=== PATIENT | female | born 1960 | race Caucasian/White ===

== ENCOUNTER 2018-04-18 06:14 | Inpatient (IN) ==
[2018-04-18] MEDS ORDERED: 0.9 % Sodium Chloride 1,000 ML IVC ONE ×2 (06:36→08:06)
[2018-04-18 07:13] LABS: Basophils % 0.3 %; Eosinophils % 0.2 %; Hematocrit 30.4 % (35.3-44.9); Hemoglobin 9.9 g/dL (11.5-15.4); Immature Granulocytes % 0.7 % (0-4); Lymphocytes # 0.6 K/mcL (0.6-4.6); Lymphocytes % 4.4 %; Mean Corpuscular HGB Conc 32.6 g/dL (31.6-35.5); Mean Corpuscular Hemoglobin 30.7 pg (28.0-33.3); Mean Corpuscular Volume 94.1 fL (83.0-100.0); Mean Platelet Volume 9.6 fL (9.4-12.4); Monocytes # 1.1 K/mcL (0.0-1.3); Monocytes % 7.7 %; Neutrophils # 12.6 K/mcL (1.6-8.9); Platelet Count 377 K/mcL (140-400); Red Blood Count 3.23 M/mcL (3.82-4.97); Red Cell Distribution Width 15.5 % (11.5-14.5); Segmented Neutrophils % 86.7 %
[2018-04-18] MEDS ORDERED: Ondansetron ODT 4 MG TAB.RAPDIS SL ONE (07:20)
[2018-04-18] MEDS ORDERED: OXYCODONE Oral CONC 10 MG/0.5 ML ORAL.SYG SL ONE (07:20)
[2018-04-18 07:22] LABS: INR 1.1; Prothrombin Time 12.9 Seconds (9.4-12.1)
[2018-04-18 07:25] LABS: Activated Partial Thrombo Time 28.4 Seconds (26.0-36.0)
--- NOTE | 2018-04-18 07:37 | Emergency Department Note ---
Disposition Clinical Impression: CHASIDY (acute kidney injury) Deep vein thrombosis of lower extremity Qualifiers: Affected thrombotic vein of extremity: iliac Chronicity: acute Laterality: left Qualified Code(s): I82.422 - Acute embolism and thrombosis of left iliac vein Anemia Qualifiers: Anemia type: unspecified type Qualified Code(s): D64.9 - Anemia, unspecified Disposition: Admitted As Inpatient Condition: Fair Referrals: Shayy Seals DO [Primary Care Provider] - Forms: ED Satisfaction Letter Extremity Problem HPI - General Chief complaint: ED Extremity Problem,Nontraumatic Stated complaint: dvt Time Seen by Provider: 04/18/18 06:16 Source: patient, other (EM documentation from [facility] ) Mode of arrival: EMS Limitations: no limitations Nursing Notes Reviewed: Yes Vital Signs Reviewed: Yes - History of Present Illness HPI Narrative: Patient w/ hx of metastatic small cell lung CA was sent here from [facility] emergency department for evaluation of left leg swelling and pain. Report received was that they were concerned about DVT and had a hard time obtaining distal pulses as well. Patient complains of left leg swelling 24 hours pain 1 week. She denies chest pain, shortness of breath, dyspnea on exertion. She has had mild intermittent swelling of both legs. However, she has never had this amount of edema or any asymmetry. She saw her primary care provider yesterday for the leg pain, but states that she did not get a diagnosis or any new medications. Around 2 AM she tried to ambulate in her house and her leg felt ve ry heavy and sore. She noticed that it was much more swollen, so she went to [facility] ER. Pt Subjective Complaint: extremity pain, extremity swelling Onset (ago): day(s) Consistency: constant, Worsening Injury Location: left Pain Scale: 10 Quality: aching, dull Radiation: proximal Improves with: immobilization Worsens with: weight bearing, walking, palpation Associated symptoms: Reports: back pain ("not worse than usual"), change in appearance, swelling. Denies: chest pain, shortness of breath, abdominal pain, bowel/bladder symptoms, fever, rash, redness Context: other (Hx of Cancer) - Related Data Home Medications Medication Instructions Recorded Confirmed Insulin LISPRO [Humalog] 1 - 15 unit SQ HS 12/22/16 04/18/18 LevETIRAcetam [Keppra] 1,000 mg PO BID 04/26/17 04/18/18 Levothyroxine [Synthroid] 150 mcg PO DAILY 04/03/18 04/18/18 Insulin Glargine [Lantus] 25 unit SQ HS 04/18/18 04/18/18 Previous Rx's Medication Instructions Recorded Magic Mouthwash [Magic Mouthwash 10 ml PO QID PRN #240 ml 01/07/16 BLM] Magnesium Oxide [Magnesium] 1 tab PO BID #60 tablet 06/28/17 Docusate Sodium [Colace] 1 tab PO BID #60 capsule 07/06/17 LORazepam [Ativan] 1 tab PO AD PRN 10 Days #10 tablet 07/06/17 Lidocaine/Prilocaine [Emla] 1 appl TP AD #30 gm 07/06/17 Ondansetron HCl [Zofran] 4 mg PO Q4H PRN #30 tablet 02/15/18 Prochlorperazine Maleate 10 mg PO Q6H PRN #30 tablet 02/15/18 [Compazine] Oxycodone HCl 1 tab PO Q6H PRN 30 Days #120 03/01/18 tablet Omeprazole 20 mg PO DAILY #30 tablet. 03/15/18 Furosemide [Lasix] 1 tab PO DAILY PRN #10 tablet 04/03/18 FentaNYL PATCH [Duragesic] 1 patch TD Q72H 30 Days #10 04/17/18 patch.td72 Loperamide [Imodium] 1 tab PO Q6H PRN #30 capsule 04/17/18 Allergies Allergy/AdvReac Type Severity Reaction Status Date / Time morphine AdvReac Nausea Verified 04/18/18 04:18 All systems ED: reviewed and negative except as stated. Review of Systems: As Per HPI Constitutional: Denies: fever, chills, weakness Cardiovascular: Reports: as per HPI, edema. Denies: chest pain, palpitations, dyspnea on exertion, orthopnea, syncope Respiratory: Reports: cough ("no different than usual" Chronic dry cough). D enies: dyspnea, wheezes, hemoptysis, stridor, sputum production Past Medical History - Past Medical History Attestation: Yes The following information was validated with the patient. Source: patient Medical history: Reports: cancer, diabetes Surgical history: Reports: other Psychiatric history: Reports: no psych history - Social History Smoking Status: Current every day smoker Smokeless Tobacco Status: No Alcohol use: Reports: none Drug use: Reports: none Physical Exam - General Limitations: no limitations General appearance: alert, in no apparent distress - Head Head exam: atraumatic, normocephalic, normal inspection - Eye Eye exam: Present: normal appearance, PERRL. Absent: scleral icterus, conjunctival injection, periorbital swelling - ENT ENT exam: mucous membranes dry - Neck Neck exam: Present: normal inspection, full ROM, trachea midline. Absent: tenderness, meningismus - Chest Chest inspection: Present: other (port in left upper chest - no erythema) - Respiratory Respiratory exam: Present: normal lung sounds bilaterally. Absent: respiratory distress, wheezes, stridor, accessory muscle use - Cardiovascular Cardiovascular exam: Present: normal rhythm, tachycardia, normal heart sounds - Extremities Exam Extremities exam: Present: tenderness, normal capillary refill, pedal edema (left), calf tenderness (left) - Expanded Lower Extremity Exam Hip/Pelvis exam: Present: full ROM. Absent: tenderness Upper leg exam: Present: tenderness (mild, left medial), swelling. Absent: erythema Knee exam: Present: full ROM, swelling, knee extension intact. Absent: tenderness, erythema Lower leg exam: Present: tenderness, swelling, Achilles tendon intact. Absent: erythema Ankle exam: Present: full ROM, swelling. Absent: tenderness, erythema Foot/toe exam: Present: full ROM, swelling. Absent: tenderness, erythema Neurovascular/Tendon exam: Present: normal capillary refill. Absent: pulse deficit (DP and PT pulses heard with doppler - bilateral) Gait: not tested/not observed - Back Exam Back exam: Present: normal inspection. Absent: tenderness Back 1 view image: 1 - 3.5cm circular, violaceous, macular lesion - non-tender. No edema. - Neurological Exam Neurological exam: Present: alert, oriented X3, CN II-XII intact, normal gait. Absent: motor sensory deficit - Psychiatric Psychiatric exam: Present: normal affect, normal mood - Skin Skin exam: Present: warm, dry, intact, normal color, other (lesion on hip described above) Course Course Narrative: Patient sent from [facility] for eval of left leg swelling, pain and possible clot. Upon arrival we checked distal pulses. They are present and symmetric but difficult to palpate. All were found with doppler. Left leg is noteably swollen from foot to mid thigh. Tender on medial aspect of entire leg. Labs, meds and doppler ordered. It was reported that patient did not have labs drawn at [facility], however it appears that this was incorrect. Pain is better, patient resting comfortably. Vitals stable. page technician is here. Patient has an acute DVT in iliac that extends all the way down. Labs show CHASIDY, anemia - new compared to 04/03/18. Fecal occult blood - negative. Xarelto ordered. Fluids given. CTA chest unable to be done due to the CHASIDY. Pt will need a VQ scan. Patient is stable. No c/o chest pain, dyspnea, hemoptysis. No hypoxia or tachypnea. Case discussed with Dr. Luann Perry. She has had [id number] time with the patient and agrees with the assessment and plan. Hospitalist paged. Vital Signs Temperature 97.9 F 04/18/18 06:22 Pulse Rate 115 04/18/18 06:22 Respiratory Rate 16 04/18/18 06:22 Blood Pressure 125/75 04/18/18 06:22 O2 Sat by Pulse Oximetry 97 04/18/18 06:22 Temperature 97.9 F 04/18/18 06:22 Pulse Rate 115 04/18/18 06:22 Respiratory Rate 16 04/18/18 06:22 Blood Pressure 125/75 04/18/18 06:22 O2 Sat by Pulse Oximetry 97 04/18/18 06:22 Oxygen Delivery Oxygen Delivery Room Air Extremity Problem, Nontraumati - Medical Records Medical records reviewed: Yes I reviewed the patient's medical records. - Lab Data Lab results reviewed: Yes I reviewed the patient's lab results. Lab results narrative: Laboratory Last Values WBC 14.6 K/mcL (4.3-11.1) H 04/18/18 07:02 RBC 3.23 M/mcL (3.82-4.97) L 04/18/18 07:02 Hgb 9.9 g/dL (11.5-15.4) L 04/18/18 07:02 Hct 30.4 % (35.3-44.9) L 04/18/18 07:02 MCV 94.1 fL (83.0-100.0) 04/18/18 07:02 MCH 30.7 pg (28.0-33.3) 04/18/18 07:02 MCHC 32.6 g/dL (31.6-35.5) 04/18/18 07:02 RDW 15.5 % (11.5-14.5) H 04/18/18 07:02 Plt Count 377 K/mcL (140-400) 04/18/18 07:02 MPV 9.6 fL (9.4-12.4) 04/18/18 07:02 Immature Gran % 0.7 % (0-4) 04/18/18 07:02 Seg Neutrophils % 86.7 % 04/18/18 07:02 Lymphocytes % 4.4 % 04/18/18 07:02 Monocytes % 7.7 % 04/18/18 07:02 Eosinophils % 0.2 % 04/18/18 07:02 Basophils % 0.3 % 04/18/18 07:02 Neutrophils # 12.6 K/mcL (1.6-8.9) H 04/18/18 07:02 Lymphocytes # 0.6 K/mcL (0.6-4.6) 04/18/18 07:02 Monocytes # 1.1 K/mcL (0.0-1.3) 04/18/18 07:02 Eosinophils # 0.0 K/mcL (0.0-0.6) 04/18/18 07:02 Basophils # 0.0 K/mcL (0.0-0.2) 04/18/18 07:02 PT 12.9 Seconds (9.4-12.1) H 04/18/18 07:02 INR 1.1 04/18/18 07:02 APTT 28.4 Seconds (26.0-36.0) 04/18/18 07:02 Sodium 133 mEq/L (136-145) L 04/18/18 07:02 Potassium 3.9 mEq/L (3.5-5.1) 04/18/18 07:02 Chloride 99 mEq/L (98-107) 04/18/18 07:02 Carbon Dioxide 19 mEq/L (23-29) L 04/18/18 07:02 BUN 21 mg/dL (6-20) H 04/18/18 07:02 Creatinine 1.64 mg/dL (0.60-1.20) H 04/18/18 07:02 Est GFR ( Amer) 39 (> 60) L 04/18/18 07:02 Est GFR (Non-Af Amer) 32 (> 60) L 04/18/18 07:02 BUN/Creatinine Ratio 13 (6-26) 04/18/18 07:02 Glucose 193 mg/dL (70-105) H 04/18/18 07:02 Calculated Osmolality 284 (280-300) 04/18/18 07:02 Calcium 9.2 mg/dL (8.6-10.3) 04/18/18 07:02 Total Bilirubin 0.3 mg/dL (0.3-1.0) 04/18/18 07:02 Direct Bilirubin 0.1 mg/dL (0.0-0.2) 04/18/18 07:02 Indirect Bilirubin 0.2 mg/dL (0.0-1.2) 04/18/18 07:02 AST 13 Units/L (13-39) 04/18/18 07:02 ALT 8 Units/L (7-52) 04/18/18 07:02 Alkaline Phosphatase 92 Units/L (34-104) 04/18/18 07:02 Serum Total Protein 7.5 g/dL (6.4-8.9) 04/18/18 07:02 Albumin 3.9 g/dL (3.5-5.7) 04/18/18 07:02 Globulin 3.6 g/dL (2.4-3.5) H 04/18/18 07:02 Albumin/Globulin Ratio 1.1 (1.1-2.2) 04/18/18 07:02 Stool Occult Bld Scrn Negative (Negative) 04/18/18 08:32 Result diagrams: 04/18/18 07:02 04/18/18 07:02 Lab Results 04/18/18 04/18/18 04/18/18 Range/Units 07:02 07:02 07:02 WBC 14.6 H (4.3-11.1) K/mcL RBC 3.23 L (3.82-4.97) M/mcL Hgb 9.9 L (11.5-15.4) g/dL Hct 30.4 L (35.3-44.9) % MCV 94.1 (83.0-100.0) fL MCH 30.7 (28.0-33.3) pg MCHC 32.6 (31.6-35.5) g/dL RDW 15.5 H (11.5-14.5) % Plt Count 377 (140-400) K/mcL MPV 9.6 (9.4-12.4) fL Immature Gran % 0.7 (0-4) % Seg Neutrophils % 86.7 % Lymphocytes % 4.4 % Monocytes % 7.7 % Eosinophils % 0.2 % Basophils % 0.3 % Neutrophils # 12.6 H (1.6-8.9) K/mcL Lymphocytes # 0.6 (0.6-4.6) K/mcL Monocytes # 1.1 (0.0-1.3) K/mcL Eosinophils # 0.0 (0.0-0.6) K/mcL Basophils # 0.0 (0.0-0.2) K/mcL PT 12.9 H (9.4-12.1) Seconds INR 1.1 APTT 28.4 (26.0-36.0) Seconds Sodium 133 L (136-145) mEq/L Potassium 3.9 (3.5-5.1) mEq/L Chloride 99 (98-107) mEq/L Carbon Dioxide 19 L (23-29) mEq/L BUN 21 H (6-20) mg/dL Creatinine 1.64 H (0.60-1.20) mg/dL Est GFR ( Amer) 39 L (> 60) Est GFR (Non-Af Amer) 32 L (> 60) BUN/Creatinine Ratio 13 (6-26) Glucose 193 H (70-105) mg/dL Calculated Osmolality 284 (280-300) Calcium 9.2 (8.6-10.3) mg/dL Total Bilirubin 0.3 (0.3-1.0) mg/dL Direct Bilirubin 0.1 (0.0-0.2) mg/dL Indirect Bilirubin 0.2 (0.0-1.2) mg/dL AST 13 (13-39) Units/L ALT 8 (7-52) Units/L Alkaline Phosphatase 92 (34-104) Units/L Serum Total Protein 7.5 (6.4-8.9) g/dL Albumin 3.9 (3.5-5.7) g/dL Globulin 3.6 H (2.4-3.5) g/dL Albumin/Globulin Ratio 1.1 (1.1-2.2)
[2018-04-18 07:52] LABS: Albumin 3.9 g/dL (3.5-5.7); Albumin/Globulin Ratio 1.1 (1.1-2.2); Bilirubin,Direct 0.1 mg/dL (0.0-0.2); Bilirubin,Indirect 0.2 mg/dL (0.0-1.2); Bilirubin,Total 0.3 mg/dL (0.3-1.0); Calcium 9.2 mg/dL (8.6-10.3); Globulin 3.6 g/dL (2.4-3.5); Potassium 3.9 mEq/L (3.5-5.1); Total Protein 7.5 g/dL (6.4-8.9)
[2018-04-18] MEDS ORDERED: *HR* Rivaroxaban 10 MG TABLET PO ONE (08:09)
--- NOTE | 2018-04-18 08:40 | Emergency Department Note ---
Disposition Clinical Impression: DVT (deep venous thrombosis) Qualifiers: DVT location: lower extremity Affected thrombotic vein of extremity: iliac Chronicity: acute Laterality: left Qualified Code(s): I82.422 - Acute embolism and thrombosis of left iliac vein Disposition: Admitted As Inpatient Condition: Good Referrals: Shayy Seals DO [Primary Care Provider] - Forms: ED Satisfaction Letter General Adult HPI - General Chief complaint: ED Extremity Problem,Nontraumatic Stated complaint: dvt Time Seen by Provider: 04/18/18 06:16 Source: patient Limitations: no limitations - History of Present Illness Pain Scale: 10 - Related Data Home Medications Medication Instructions Recorded Confirmed Insulin LISPRO [Humalog] 1 - 15 unit SQ HS 12/22/16 04/18/18 LevETIRAcetam [Keppra] 1,000 mg PO BID 04/26/17 04/18/18 Levothyroxine [Synthroid] 150 mcg PO DAILY 04/03/18 04/18/18 Insulin Glargine [Lantus] 25 unit SQ HS 04/18/18 04/18/18 Previous Rx's Medication Instructions Recorded Magic Mouthwash [Magic Mouthwash 10 ml PO QID PRN #240 ml 01/07/16 BLM] Blood-Glucose Meter [Cool Blood 1 each MC AD #1 each 02/08/16 Glucose Meter] Lancets [Blood Lancets] 1 each MC BID #100 each 02/08/16 Magnesium Oxide [Magnesium] 1 tab PO BID #60 tablet 06/28/17 Docusate Sodium [Colace] 1 tab PO BID #60 capsule 07/06/17 LORazepam [Ativan] 1 tab PO AD PRN 10 Days #10 tablet 07/06/17 Lidocaine/Prilocaine [Emla] 1 appl TP AD #30 gm 07/06/17 Ondansetron HCl [Zofran] 4 mg PO Q4H PRN #30 tablet 02/15/18 Prochlorperazine Maleate 10 mg PO Q6H PRN #30 tablet 02/15/18 [Compazine] Oxycodone HCl 1 tab PO Q6H PRN 30 Days #120 03/01/18 tablet Omeprazole 20 mg PO DAILY #30 tablet.dr 03/15/18 Furosemide [Lasix] 1 tab PO DAILY PRN #10 tablet 04/03/18 Blood Sugar Diagnostic [Glucose 1 each MC BID #60 strip 04/17/18 Test Strip] FentaNYL PATCH [Duragesic] 1 patch TD Q72H 30 Days #10 04/17/18 patch.td72 Loperamide [Imodium] 1 tab PO Q6H PRN #30 capsule 04/17/18 Allergies Allergy/AdvReac Type Severity Reaction Status Date / Time morphine AdvReac Nausea Verified 04/18/18 04:18 Past Medical History - Past Medical History Medical history: Reports: cancer, diabetes Surgical history: Reports: other Psychiatric history: Reports: no psych history - Social History Smoking Status: Current every day smoker Smokeless Tobacco Status: No Alcohol use: Reports: none Drug use: Reports: none Physical Exam - General Limitations: no limitations General appearance: alert, in no apparent distress Course Vital Signs Temperature 97.9 F 04/18/18 06:22 Pulse Rate 115 04/18/18 06:22 Respiratory Rate 16 04/18/18 06:22 Blood Pressure 125/75 04/18/18 06:22 O2 Sat by Pulse Oximetry 97 04/18/18 06:22 Temperature 97.9 F 04/18/18 06:22 Pulse Rate 115 04/18/18 06:22 Respiratory Rate 16 04/18/18 06:22 Blood Pressure 125/75 04/18/18 06:22 O2 Sat by Pulse Oximetry 97 04/18/18 06:22 Oxygen Delivery Oxygen Delivery Room Air Medical Decision Making - Lab Data Result diagrams: 04/18/18 07:02 04/18/18 07:02 Lab Results 04/18/18 04/18/18 04/18/18 Range/Units 07:02 07:02 07:02 WBC 14.6 H (4.3-11.1) K/mcL RBC 3.23 L (3.82-4.97) M/mcL Hgb 9.9 L (11.5-15.4) g/dL Hct 30.4 L (35.3-44.9) % MCV 94.1 (83.0-100.0) fL MCH 30.7 (28.0-33.3) pg MCHC 32.6 (31.6-35.5) g/dL RDW 15.5 H (11.5-14.5) % Plt Count 377 (140-400) K/mcL MPV 9.6 (9.4-12.4) fL Immature Gran % 0.7 (0-4) % Seg Neutrophils % 86.7 % Lymphocytes % 4.4 % Monocytes % 7.7 % Eosinophils % 0.2 % Basophils % 0.3 % Neutrophils # 12.6 H (1.6-8.9) K/mcL Lymphocytes # 0.6 (0.6-4.6) K/mcL Monocytes # 1.1 (0.0-1.3) K/mcL Eosinophils # 0.0 (0.0-0.6) K/mcL Basophils # 0.0 (0.0-0.2) K/mcL PT 12.9 H (9.4-12.1) Seconds INR 1.1 APTT 28.4 (26.0-36.0) Seconds Sodium 133 L (136-145) mEq/L Potassium 3.9 (3.5-5.1) mEq/L Chloride 99 (98-107) mEq/L Carbon Dioxide 19 L (23-29) mEq/L BUN 21 H (6-20) mg/dL Creatinine 1.64 H (0.60-1.20) mg/dL Est GFR ( Amer) 39 L (> 60) Est GFR (Non-Af Amer) 32 L (> 60) BUN/Creatinine Ratio 13 (6-26) Glucose 193 H (70-105) mg/dL Calculated Osmolality 284 (280-300) Calcium 9.2 (8.6-10.3) mg/dL Total Bilirubin 0.3 (0.3-1.0) mg/dL Direct Bilirubin 0.1 (0.0-0.2) mg/dL Indirect Bilirubin 0.2 (0.0-1.2) mg/dL AST 13 (13-39) Units/L ALT 8 (7-52) Units/L Alkaline Phosphatase 92 (34-104) Units/L Serum Total Protein 7.5 (6.4-8.9) g/dL Albumin 3.9 (3.5-5.7) g/dL Globulin 3.6 H (2.4-3.5) g/dL Albumin/Globulin Ratio 1.1 (1.1-2.2) Attestation Statement - Attestation Attestation: For this encounter, I have reviewed the MOLD WORKER or PA documentation, treatment plan, and medical decision making; and I have had face to face time with this patient. 57 year old georgie with history of cancer and currently receiving chemtherapy persnets for a persitnat swelling of her leg, she is tachycardiac without chest pain or hemopytosis and no history of PE in the past. Patient has an iliac DVT and there is concern for PE and she will need a VQ scan, we will start her on anticoagulation now.
[2018-04-18] MEDS ORDERED: Naloxone 0.4 MG/ML INJ IVP PRN ×2 (09:47→09:56)
[2018-04-18] MEDS ORDERED: *HR* Heparin 5,000 UNIT/ML VIAL IVP ONE ×2 (10:01)
[2018-04-18] MEDS ORDERED: *HR* Heparin 5,000 UNIT/ML VIAL IVP PRN ×2 (10:01)
--- NOTE | 2018-04-18 10:11 | Internal Med History&Physical ---
<Xavier Gentile - Last Filed: 04/18/18 10:06> Date of Encounter: 04/18/18 Time of Encounter: 09:00 Internal Medicine - H&P: HPI Chief complaint: leg pain Admitted From: Home Plans for Post Hospital Care: Home History of present illness: Ms. 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 She states that she started having bilateral LE pain last Sunday that radiated from her hips to her knees. Over the next few days she the pain localized to the left lower extremity and worsed by the day. She said that her ability to stand or walk distances decreased do to leg pain and shortness of breath. She did not think to seek medical attention until last evening when the pain was constant and not resolving. She was not on any anticoagulation prior and was undergoing palliative radiation therapy. She denies any recent chemo therapy. She denies any other concerning symptoms. She did not notice her left lower extremity was really swollen until it was pointed out in the emergency department. In discussion possible treatments and interventions she would like everything done at this time. She would like to think about any change in code status and is full code at admission. Past Med Surg Social Fam HX - Past Medical History Medical history: cancer, diabetes Additional medical history: non small cell with mets Psychiatric history: no psych history - Past Surgical History Surgical History: other Additional surgical history: ovarian cyst removed - Social History Smoking Status: Current every day smoker Smokeless Tobacco Status: No Alcohol use: none Drug use: none - Family History Brother Hx Family Cancer: Yes (lung cancer) Internal Medicine - H&P: Meds Magic Mouthwash [Magic Mouthwash BLM] 10 ml PO QID PRN #240 ml 01/07/16 [Rx] Insulin LISPRO [Humalog] 1 - 15 unit SQ HS 12/22/16 [History] LevETIRAcetam [Keppra] 1,000 mg PO BID 04/26/17 [History] Magnesium Oxide [Magnesium] 1 tab PO BID #60 tablet 06/28/17 [Rx] Docusate Sodium [Colace] 1 tab PO BID #60 capsule 07/06/17 [Rx] LORazepam [Ativan] 1 tab PO AD PRN 10 Days #10 tablet 07/06/17 [Rx] Lidocaine/Prilocaine [Emla] 1 appl TP AD #30 gm 07/06/17 [Rx] Ondansetron HCl [Zofran] 4 mg PO Q4H PRN #30 tablet 02/15/18 [Rx] Prochlorperazine Maleate [Compazine] 10 mg PO Q6H PRN #30 tablet 02/15/18 [Rx] Oxycodone HCl 1 tab PO Q6H PRN 30 Days #120 tablet 03/01/18 [Rx] Omeprazole 20 mg PO DAILY #30 tablet.dr 03/15/18 [Rx] Furosemide [Lasix] 1 tab PO DAILY PRN #10 tablet 04/03/18 [Rx] FentaNYL PATCH [Duragesic] 1 patch TD Q72H 30 Days #10 patch.td72 04/17/18 [Rx] Loperamide [Imodium] 1 tab PO Q6H PRN #30 capsule 04/17/18 [Rx] Insulin Glargine [Lantus] 0 - 27 unit SQ HS 04/18/18 [History] Levothyroxine [Synthroid] 125 mcg PO QAM 04/18/18 [History] Allergy/AdvReac Type Severity Reaction Status Date / Time morphine AdvReac Nausea Verified 04/18/18 04:18 All Systems PM: A 10-system review of systems was performed and is negative for pertinent findings except as documented above in the HPI. - Constitutional Constitutional: fatigue, weight loss, no anorexia, no chills, no excessive sweating, no fever(s), no night sweats, no weakness - EENT Eyes: no blurry vision, no change in vision, no loss of peripheral vision Nose, mouth and throat: no dry mouth, no dysphagia, no neck mass, no sore throat - Cardiovascular Cardiovascular ROS IM: dyspnea, dyspnea on exertion, edema, no chest pain, no diaphoresis, no syncope - Respiratory Respiratory: dyspnea, no cough, no stridor, no chest congestion - Gastrointestinal Gastrointestinal: no change in bowel habits, no change in stool character, no constipation, no diarrhea, no nausea, no vomiting - Musculoskeletal Musculoskeletal ROS IM: back pain - Integumentary Integumentary IM: no new lesions - Neurological Neurological ROS: no abnormal movements, no confusion - Constitutional Vitals: Temp Pulse Resp BP Pulse Ox 97.9 F 115 20 142/64 97 04/18/18 06:22 04/18/18 06:22 04/18/18 09:16 04/18/18 09:16 04/18/18 06:22 Exam: Gen: Alert awake oriented interactive in not acute distress. HEENT: NC/AT perrla, oral mucosa dry, neck supple trachea midline Cardiac: Tachycardia, Radial pulses 2+, difficulty with pulse in left posterior tibial or dorsal pedal with 2+ pitting edema, right foot with mild edema and 2+ pulses Resp: CTABL MSK: patient has limited mobility of left LE with edema, skin is warm and edematous from left hip to mid lucas, below mid lucas it is edematous and cold with purple discoloration of skin. Abdomen: soft, nontender to palpation, +BS Internal Med - H&P Results - Labs CBC & Chem 7: 04/18/18 07:02 04/18/18 07:02 Labs: Short CBC 04/18/18 Range/Units 07:02 WBC 14.6 H (4.3-11.1) K/mcL Hgb 9.9 L (11.5-15.4) g/dL Hct 30.4 L (35.3-44.9) % Plt Count 377 (140-400) K/mcL Neutrophils # 12.6 H (1.6-8.9) K/mcL BMP 04/18/18 07:02 Sodium 133 L Potassium 3.9 Chloride 99 Carbon Dioxide 19 L BUN 21 H Creatinine 1.64 H Glucose 193 H Calcium 9.2 Liver Function 04/18/18 Range/Units 07:02 Total Bilirubin 0.3 (0.3-1.0) mg/dL Direct Bilirubin 0.1 (0.0-0.2) mg/dL AST 13 (13-39) Units/L ALT 8 (7-52) Units/L Alkaline Phosphatase 92 (34-104) Units/L Albumin 3.9 (3.5-5.7) g/dL - Assessment and plan (1) Deep vein thrombosis of lower extremity Current Visit: Yes Status: Acute Assessment and plan: 57 yo female with diffuse metastatic small cell lung cancer currently on radiation therapy, denies recent chemo therapy presented with left lower extremity swelling and pain. Found to have extensive DVT from the femoral vein through the tibial and greater saphronous veins. She has significant swelling, decrease in pulses of left foot and cool skin. - Discussed case with Dr Dang with Vascular surgery and will start IV heparin with high dose bolus Heparin. He will see this morning. - She did receive Xarelto PO in the emergency department but given condition will continue on Heparin. - Elevate leg to help with edema. Qualifiers: Affected thrombotic vein of extremity: iliac Chronicity: acute Laterality: left Qualified Code(s): I82.422 - Acute embolism and thrombosis of left iliac vein (2) Metastatic lung cancer (metastasis from lung to other site) Current Visit: Yes Status: Acute Assessment and plan: Known Metastatic small cell lung cancer with brain metastatic (previous neursurgery for debulking) adrenal and abdominal metastatic disease. Most recent Chest CT demonstrates increase in size of chest lesions. - Follows with [facility] and will give a courtesy call to let them know their patient is admitted. - Given extent of problems and prognosis this patient may benefit from Palliative care consult - Will continue home pain control. - Patient currently has 2 Fentanyl patches on (Placed on Sunday, today is ). Replace Q3 days. Qualifiers: Qualified Code(s): C34.90 - Malignant neoplasm of unspecified part of unspecified bronchus or lung (3) Tachycardia Current Visit: Yes Status: Acute Assessment and plan: Tachycardia and shortness of breath in patient with extensive DVT. Given CHASIDY will VQ scan for possible PE. - Inpatient Cardiac monitoring - EKG - Anticoagulation with Heparin Drip started. (4) Normocytic anemia Current Visit: Yes Status: Acute Assessment and plan: Hgb 9.9 with MCV 95. Likely secondary to chronic disease - Patient with CHASIDY, usually normal renal function. - hemocolt is negative. - continue to monitor. (5) CHASIDY (acute kidney injury) Current Visit: Yes Status: Acute Assessment and plan: CHASIDY in acutely ill patient with extensive DVT, tachycardia. - possible supply demand do to DVT - Patient receiving IV fluids x 2 bolus in the emergency department. Will avoid further load until we know if PE possible and risk over overload. - Avoid CTA at this time and will do VQ scan - avoid nephrotoxic medication and NSAIDs. - monitor daily. (6) Hypothyroidism Current Visit: Yes Status: Acute Assessment and plan: Known hypothyroidism, review of chart is thought secondary to Chemothrapy. - Recent TSH was 95. Continue current Levothyroxine dose as it was recently adjusted. Qualifiers: Qualified Code(s): E03.9 - Hypothyroidism, unspecified (7) Diabetes type 2, uncontrolled Current Visit: Yes Status: Acute Assessment and plan: Glucoses elevated. - Will place on sliding scale without basal dosing at this time as patient is NPO, glucose is not to elevated. - Low dose sliding scale, ACHS glucose checks - eventually today if not surgical candidate to switch to diabetic diet. Qualifiers: Qualified Code(s): E11.65 - Type 2 diabetes mellitus with hyperglycemia (8) DVT prophylaxis Current Visit: Yes Status: Acute Assessment and plan: patient on heparin drip. - Time Spent With Patient Total time spent is greater than 50% in coordination of care (as documented) at patient's floor/unit and/or counseling patient: <Frank Stanford - Last Filed: 04/22/18 20:10> Date of Encounter: 04/22/18 Internal Medicine - H&P: HPI History of present illness: Ms. Steele is a 57 year old female Past Med Surg Social Fam HX - Family History Brother Hx Family Cancer: Yes (lung cancer) Mother Hx Family Endocrine Disorder: Yes (DM) Father Hx Family Cardiac Disorders: Yes All Systems PM: A 10-system review of systems was performed and is negative for pertinent findings except as documented above in the HPI. - Constitutional Vitals: Temp Pulse Resp BP Pulse Ox 98.4 F 98 16 115/75 98 04/22/18 18:15 04/22/18 18:15 04/22/18 18:15 04/22/18 18:15 04/22/18 18:15 Internal Med - H&P Results - Labs CBC & Chem 7: 04/22/18 10:22 04/22/18 00:35 Labs: Short CBC 04/22/18 04/22/18 Range/Units 00:35 10:22 WBC 8.6 8.6 (4.3-11.1) K/mcL Hgb 8.8 L 8.5 L (11.5-15.4) g/dL Hct 26.6 L 25.3 L (35.3-44.9) % Plt Count 447 H 429 H (140-400) K/mcL Neutrophils # 6.7 (1.6-8.9) K/mcL BMP 04/22/18 00:35 Sodium 135 L Potassium 4.1 Chloride 100 Carbon Dioxide 26 BUN 13 Creatinine 0.96 Glucose 131 H Calcium 8.7 - Impressions ITS Impressions Pulmonary Perfusion Imaging 04/18/18 10:05 IMPRESSION: High probability for pulmonary embolus. The findings were sent to the Radiology Results Communication Center at 9:18 am on 04/19/2018to be communicated to a licensed caregiver. D/ / 04/19/2018 09:23:00 Lorie Bennett MD / isabel Interpreting Provider: Lorie Bennett MD Chest X-Ray 04/19/18 07:55 IMPRESSION: Mild multifocal segmental atelectasis versus pneumonia. D/ / Emeka Cheek MD / Emeka Cheek MD Interpreting Provider: Emeka Cheek MD - Assessment and plan (1) Type 2 diabetes mellitus Current Visit: No Status: Chronic Qualifiers: Diabetes mellitus assisted insulin use: with terminal system operator use Diabetes mellitus complication status: with unspecified complications Qualified Code(s): E11.8 - Type 2 diabetes mellitus with unspecified complications; Z79.4 - nursing home (current) use of insulin (2) Deep vein thrombosis of lower extremity Current Visit: Yes Status: Acute Qualifiers: Affected thrombotic vein of extremity: iliac Chronicity: acute Laterality: left Qualified Code(s): I82.422 - Acute embolism and thrombosis of left iliac vein (3) CHASIDY (acute kidney injury) Current Visit: Yes Status: Resolved (4) Metastatic lung cancer (metastasis from lung to other site) Current Visit: Yes Status: Chronic Qualifiers: Laterality: unspecified laterality Qualified Code(s): C34.90 - Malignant neoplasm of unspecified part of unspecified bronchus or lung (5) Hypothyroidism Current Visit: No Status: Chronic Qualifiers: Hypothyroidism type: unspecified Qualified Code(s): E03.9 - Hypothyroidism, unspecified - Time Spent With Patient Total time spent is greater than 50% in coordination of care (as documented) at patient's floor/unit and/or counseling patient: - Attending Attestation Discussed with resident and agree with assessment and plan as above. Vascular surgery was consulted with recommendations to start patient on heparin drip. Patient was already given Xarelto in ER, will wait 24 hours before initiating heparin drip.
[2018-04-18] MEDS ORDERED: Heparin 25,000 UNIT/500 ML D5W 25,000 UNIT/500 ML BAG IVC SCH (10:15)
[2018-04-18] MEDS ORDERED: D5% in Water 1,000 ML IVC PRN (10:33)
[2018-04-18] MEDS ORDERED: Dextrose Gel 15 GM/37.5 ML TUBE PO PRN ×2 (10:33)
[2018-04-18] MEDS ORDERED: *HR* Dextrose 50 % in Water (Syg) 50 ML SYRINGE IVP PRN (10:33)
[2018-04-18 10:48] LABS: Hematocrit 28.1 % (35.3-44.9); Hemoglobin 9.1 g/dL (11.5-15.4); Mean Corpuscular HGB Conc 32.4 g/dL (31.6-35.5); Mean Corpuscular Hemoglobin 30.4 pg (28.0-33.3); Mean Platelet Volume 9.7 fL (9.4-12.4); Platelet Count 337 K/mcL (140-400); Red Blood Count 2.99 M/mcL (3.82-4.97); Red Cell Distribution Width 15.6 % (11.5-14.5)
[2018-04-18 10:57] LABS: INR 1.7; Prothrombin Time 19.4 Seconds (9.4-12.1)
[2018-04-18 10:59] LABS: Heparin anti-factor XA UFH > 2.00 IU/mL (0.30-0.70)
[2018-04-18] MEDS: Insulin LISPRO 300 UNITS/3 ML VIAL SQ SCH ×3 (11:43→20:36)
--- NOTE | 2018-04-18 11:46 | Event Note ---
Date of Encounter: 04/18/18 Time of Encounter: 11:30 I was contacted by pharmacy after I was paged regarding anticoagulation. Mrs. Steele had received 20mg Xarelto in the emergency department this morning and hence the pharmacist Brianna beaver
--- NOTE | 2018-04-18 12:38 | Vascular/Endovasc Consult Note ---
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 (2) Deep vein thrombosis of lower extremity Current Visit: Yes Status: Acute Patient has a left ilio, femoral, popliteal, and tibial vein deep venous thrombosis that is acute. She has no previous history of DVT. She has significant edema. I am able to palpate a pulse at the left foot. I do not believe the patient has phlegmasia cerulea dolens. She has some stasis and cyanosis but this appears to be related to the venous congestion. I suspect the patient has been having symptoms for longer than from 2:00 this morning but at the present time with her metastatic disease I would recommend a conservative course of therapy. I would recommend intravenous heparin in the initial treatment but she is oriented been given several toe in the emergency room and the intravenous heparin was not released for this patient at this time. Therefore no further anticoagulation is possible for the patient for today. I recommended to the patient that she focus on conservative factors with elevation of the left lower extremity with the knee and ankle higher than the heart. I explained that occasionally we need to perform venous surgery with mechanical thrombectomy and tPA but I would not perform that procedure immediately but rather give her an opportunity to improve with conservative measures. All questions were answered. Qualifiers: Affected thrombotic vein of extremity: iliac Chronicity: acute Laterality: left Qualified Code(s): I82.422 - Acute embolism and thrombosis of left iliac vein (3) Metastatic lung cancer (metastasis from lung to other site) Current Visit: Yes Status: Chronic Patient has known metastatic small cell lung cancer. She is undergoing active treatment as directed from the oncology clinic. Qualifiers: Laterality: unspecified laterality Qualified Code(s): C34.90 - Malignant neoplasm of unspecified part of unspecified bronchus or lung - History of Present Illness Consult date: 04/18/18 Consult reason: dvt Chief complaint: swelling/pain History of present illness: Ms. Steele is a 57 year old female Who was admitted overnight via the emergency room because of left lower extremity swelling and pain. Her history is somewhat unclear as she states that she just noted the rather dramatic swelling of her left lower extremity at 2:00 this morning. She has been having many days of pain in the lower extremities. She has a chronic ongoing issue with lower extremity pain and she has been seen in the past through [facility] for low back pain and lower extremity pain. She also has known lumbar disc disease. Via the emergency room she had a workup which included a venous duplex scan which shows an extensive left lower extremity DVT involving both the superficial and deep venous system of the left lower extremity from the ankle to the groin. It is unclear what status is of the left iliac system. The patient denies any previous symptoms of DVT or problems with coagulopathy. Vascular surgery was asked to see the patient because of the extensive nature of the DVT and some concern about the distal arterial perfusion. The patient denies any previous known history of arterial occlusive disease of the left lower extremity. It is important to note the patient has stage IV metastatic small cell lung cancer. She had been in the oncology clinic just yesterday to see her physician who is Dr. Ramirez on and also she received chemotherapy. Apparently the patient is also receiving palliative radiation therapy for retroperitoneal issues. Her past history is also significant for diabetes. She also has a history of tobacco abuse. Past Med Surg Social Fam HX - Past Medical History Medical history: cancer, diabetes Additional medical history: non small cell with mets Psychiatric history: no psych history - Past Surgical History Surgical History: other Additional surgical history: ovarian cyst removed - Social History Smoking Status: Current every day smoker Smokeless Tobacco Status: No Alcohol use: none Drug use: none - Family History Mother Hx Family Endocrine Disorder: Yes (DM) Father Hx Family Cardiac Disorders: Yes Brother Hx Family Cancer: Yes (lung cancer) Medications and Allergies Magic Mouthwash [Magic Mouthwash BLM] 10 ml PO QID PRN #240 ml 01/07/16 [Rx] Insulin LISPRO [Humalog] 1 - 15 unit SQ HS 12/22/16 [History] LevETIRAcetam [Keppra] 1,000 mg PO BID 04/26/17 [History] Magnesium Oxide [Magnesium] 1 tab PO BID #60 tablet 06/28/17 [Rx] Docusate Sodium [Colace] 1 tab PO BID #60 capsule 07/06/17 [Rx] LORazepam [Ativan] 1 tab PO AD PRN 10 Days #10 tablet 07/06/17 [Rx] Lidocaine/Prilocaine [Emla] 1 appl TP AD #30 gm 07/06/17 [Rx] Ondansetron HCl [Zofran] 4 mg PO Q4H PRN #30 tablet 02/15/18 [Rx] Prochlorperazine Maleate [Compazine] 10 mg PO Q6H PRN #30 tablet 02/15/18 [Rx] Oxycodone HCl 1 tab PO Q6H PRN 30 Days #120 tablet 03/01/18 [Rx] Omeprazole 20 mg PO DAILY #30 tablet. 03/15/18 [Rx] Furosemide [Lasix] 1 tab PO DAILY PRN #10 tablet 04/03/18 [Rx] Levothyroxine [Synthroid] 150 mcg PO DAILY 04/03/18 [History] FentaNYL PATCH [Duragesic] 1 patch TD Q72H 30 Days #10 patch.td72 04/17/18 [Rx] Loperamide [Imodium] 1 tab PO Q6H PRN #30 capsule 04/17/18 [Rx] Insulin Glargine [Lantus] 25 unit SQ HS 04/18/18 [History] Allergy/AdvReac Type Severity Reaction Status Date / Time morphine AdvReac Nausea Verified 04/18/18 04:18 All Systems Review: The remainder of the systems were reviewed and are negative Exam Vital Signs, Last 4 Hours Resp BP 04/18/18 09:16 20 142/64 General: Present: Conversant, No Apparent Distress, Well developed, Well nourished HEENT: Present: Atraumatic, Normocephaly, Trachea midline Neck: Absent: JVD, Left Carotid bruit, Right Carotid bruit, Midline deformity, Tracheal deviation Cardiac: Present: Reg Rate and Rhythm, Normal S1 and S2, No Murmur. Absent: Irregular Rhythm Lungs: Present: Normal Breath Sounds, No Wheeze, Rales, Rhonchi Neuro: Present: Alert and responsive, No focal deficits noted, Cranial nerves grossly intact Abdomen: Present: Soft, Non-tender. Absent: Masses Vascular: Present: Edema (Patient has marked edema of the left lower extremity extending from the foot to the groin level. There is no abdominal or pelvic distention. The right lower extremity does not appear to be edematous. Patient has mild pain on deep palpation. I am able to palpate pulses in the right lower extremity. I can palpate a left dorsalis pedis pulse. It is difficult to palpate other pulses due to the ongoing edema. There is no signs of cellulitis. There is no streaking. There are no open wounds. There is no lymphangitis. There is no signs of venous stasis disease or venous hyperpigmentation.) Skin: Present: No rashes noted on visualized skin Consult Discharge Plan - Plan Referrals: Shayy Seals DO [Primary Care Provider] -
[2018-04-18] MEDS ORDERED: traMADol 50 MG TABLET PO ONE (17:36)
[2018-04-18] MEDS ORDERED: Ondansetron 4 MG/2 ML VIAL IVP ONE (17:37)
[2018-04-19] MEDS ORDERED: *HR* OxyCODONE Immed Rel 5 MG TABLET PO ONE (00:32)
[2018-04-19] MEDS ORDERED: levETIRAcetam 250 MG TABLET PO SCH (00:45)
[2018-04-19 04:48] LABS: Basophils # 0.1 K/mcL (0.0-0.2); Basophils % 0.6 %; Eosinophils # 0.1 K/mcL (0.0-0.6); Eosinophils % 0.9 %; Hematocrit 29.5 % (35.3-44.9); Hemoglobin 9.5 g/dL (11.5-15.4); Immature Granulocytes % 0.5 % (0-4); Lymphocytes # 0.7 K/mcL (0.6-4.6); Mean Corpuscular HGB Conc 32.2 g/dL (31.6-35.5); Mean Corpuscular Hemoglobin 30.4 pg (28.0-33.3); Mean Corpuscular Volume 94.2 fL (83.0-100.0); Mean Platelet Volume 10.1 fL (9.4-12.4); Monocytes # 0.3 K/mcL (0.0-1.3); Monocytes % 2.7 %; Neutrophils # 8.9 K/mcL (1.6-8.9); Platelet Count 401 K/mcL (140-400); Red Blood Count 3.13 M/mcL (3.82-4.97); Red Cell Distribution Width 15.7 % (11.5-14.5); Segmented Neutrophils % 88.3 %
[2018-04-19 05:01] LABS: Albumin 3.7 g/dL (3.5-5.7); Albumin/Globulin Ratio 1.1 (1.1-2.2); Bilirubin,Total 0.3 mg/dL (0.3-1.0); Globulin 3.4 g/dL (2.4-3.5); Potassium 4.4 mEq/L (3.5-5.1); Total Protein 7.1 g/dL (6.4-8.9)
[2018-04-19] MEDS ORDERED: *HR* OxyCODONE Immed Rel 15 MG TABLET PO PRN (07:55)
[2018-04-19] MEDS ORDERED: Magic Mouthwash 10 ML UD Cup PO PRN (07:55)
[2018-04-19] MEDS ORDERED: *HR* LORazepam 1 MG TABLET PO PRN (07:55)
[2018-04-19] MEDS: levETIRAcetam 250 MG TABLET PO SCH ×2 (08:39→20:33)
[2018-04-19] MEDS: Insulin LISPRO 300 UNITS/3 ML VIAL SQ SCH ×4 (08:43→20:51)
[2018-04-19] MEDS ORDERED: *HR* Heparin 5,000 UNIT/ML VIAL IVP ONE (08:49)
[2018-04-19] MEDS ORDERED: *HR* Heparin 5,000 UNIT/ML VIAL IVP PRN (08:49)
[2018-04-19 09:32] LABS: Hematocrit 28.9 % (35.3-44.9); Hemoglobin 9.3 g/dL (11.5-15.4); Mean Corpuscular HGB Conc 32.2 g/dL (31.6-35.5); Mean Corpuscular Hemoglobin 30.2 pg (28.0-33.3); Mean Corpuscular Volume 93.8 fL (83.0-100.0); Platelet Count 391 K/mcL (140-400); Red Blood Count 3.08 M/mcL (3.82-4.97); Red Cell Distribution Width 15.6 % (11.5-14.5)
[2018-04-19 09:40] LABS: INR 1.3; Prothrombin Time 14.2 Seconds (9.4-12.1)
[2018-04-19 09:41] LABS: Heparin anti-factor XA UFH 0.37 IU/mL (0.30-0.70)
[2018-04-19] MEDS: Heparin 25,000 UNIT/500 ML D5W 25,000 UNIT/500 ML BAG IVC SCH (09:55)
[2018-04-19] MEDS: *HR* FentaNYL PATCH 50 MCG PATCH TD SCH (10:00)
[2018-04-19] MEDS: Magnesium Oxide 400 MG TABLET PO SCH ×2 (10:05→20:35)
--- NOTE | 2018-04-19 11:26 | Vascular/Endovas Progress Note ---
Date of Encounter: 04/19/18 Time of Encounter: 11:00 - Assessment and plan (1) Retroperitoneal lymphadenopathy Current Visit: Yes Status: Chronic Patient is undergoing palliative radiation therapy. (2) Deep vein thrombosis of lower extremity Current Visit: Yes Status: Acute Patient has left lower extremity DVT. There is no sign of phlegmasia. Perfusion to the left foot is improved. Edema to the left lower extremity is unchanged from yesterday. I do not have the report at the time of this dictation but the nurse mentioned to me that there was a high probability of a pulmonary embolism on the VQ scan. Final report is pending on that issue. Recommend patient remained at bed rest with lower extremity elevated for today. I discussed with the patient and her the possibility of mechanical thrombectomy with TPA for the left lower extremity. I explained that this would be an attempt to establish a venous channel from the popliteal into the iliac venous system. The tibial veins of course would not be affected or improved with this treatment. The goal would be is to increase venous outflow to relieve her left lower extremity symptoms. The potential risks and benefits were discussed. Patient is to consider option. Patient is now on intravenous heparin. I would recommend that we continue with lower extremity elevation for now and if there is no significant improvement we would offer the patient venous surgery on Sunday if she remains hemodynamically stable. (3) Metastatic lung cancer (metastasis from lung to other site) Current Visit: Yes Status: Chronic Patient has known metastatic small cell lung cancer. She is undergoing active treatment as directed from the oncology clinic. Qualifiers: Laterality: unspecified laterality Qualified Code(s): C34.90 - Malignant neoplasm of unspecified part of unspecified bronchus or lung - Subjective Interval history: Patient has been moved to [facility]. The patient had an uneventful night. Patient planes of back pain. She has known retroperitoneal lymphadenopathy. She states her left leg feels about the same as yesterday but is no worse. She has no left foot pain. Vital Signs, Last 4 Hours Temp Pulse Resp BP Pulse Ox 04/19/18 10:11 98.3 F 109 16 115/72 96 04/19/18 07:26 97.5 F L 119 20 104/65 95 - Physical Examination General: Present: Conversant, No Apparent Distress HEENT: Present: Atraumatic Neck: Absent: JVD Vascular: Present: Edema (Edema of the left thigh and calf remains unchanged fr om yesterday. It is nontender. There is no signs of cellulitis.), Color/Temperature (Left foot is now warm and pink. Patient has a 1+ palpable left dorsalis pedis pulse. Improved color and temperature from yesterday. No cyanosis.) Skin: Present: No rashes noted on visualized skin Results 04/19/18 09:13 04/19/18 04:01 Lab Results, Last 24 hours 04/19/18 04/19/18 04/19/18 04:01 04:01 09:13 WBC 10.1 10.2 Hgb 9.5 L 9.3 L Hct 29.5 L 28.9 L Plt Count 401 H 391 INR Sodium 135 L Potassium 4.4 Chloride 104 Carbon Dioxide 22 L BUN 20 Creatinine 1.29 H Glucose 129 H Calcium 9.0 Total Bilirubin 0.3 AST 16 ALT 8 Alkaline Phosphatase 85 04/19/18 09:13 WBC Hgb Hct Plt Count INR 1.3 Sodium Potassium Chloride Carbon Dioxide BUN Creatinine Glucose Calcium Total Bilirubin AST ALT Alkaline Phosphatase Consult Discharge Plan - Plan Referrals: Shayy Seals DO [Primary Care Provider] - 08/12/18 9:15 am (6 month f/u) Trinity Benítez CNP [Advanced Practice Nurse] - 04/25/18 10:00 am
--- NOTE | 2018-04-19 12:43 | Internal Med Progress Note ---
Hospitalist Progress Note - Encounter Date of Encounter: 04/19/18 Time of Encounter: 10:00 - Subjective Interval History: H&P reviewed. Patient with history of metastatic small cell lung cancer, diabetes is admitted for extensive left lower extremity DVT. States that her leg feels about the same as yesterday. No fever/chills, chest pain, or hemoptysis. - Exam Vitals: Temp Pulse Resp BP Pulse Ox 98.3 F 109 16 115/72 96 04/19/18 10:11 04/19/18 10:11 04/19/18 10:11 04/19/18 10:11 04/19/18 10:11 Exam: Gen: Alert awake oriented interactive in not acute distress. Cardiac: Tachycardic, no murmur Resp: Clear to auscultation MSK: Left leg edema upto proximal thigh, non-tender on palpation. DP felt Abdomen: soft, nontender - Assessment and Plan (1) Deep vein thrombosis of lower extremity Current Visit: Yes Status: Acute Assessment and Plan: extensive left leg DVT involving ilio, femoral, popliteal, and tibial vein hx of metastatic small cell lung cancer on heparin gtt, continue prelim report of V/Q scan: high probability of PE Continue to elevate left leg, remain bed rest per vascular surgery vascular surgery input appreciated: Possible venous surgery on Sunday if there is no significant improvement with current mx (2) CHASIDY (acute kidney injury) Current Visit: Yes Status: Acute Assessment and Plan: Improving with IV fluid, continue Avoid nephrotoxins Continue to hold Lasix (3) Type 2 diabetes mellitus Current Visit: No Status: Chronic Assessment and Plan: On Lantus and sliding scale Humalog at home Continue low-dose sliding scale ADA diet, Accu-Cheks before meals and at bedtime (4) Metastatic lung cancer (metastasis from lung to other site) Current Visit: Yes Status: Chronic Assessment and Plan: outpatient follow up given the history of malignancy, lovenox would be the best choice at the time of discharge for DVT continue Keppra for seizure prophylaxis (5) Hypothyroidism Current Visit: No Status: Chronic Assessment and Plan: continue home meds - Time Spent with Patient Total time spent is greater than 50% in coordination of care (as documented) at patient's floor/unit and/or counseling patient: Plan of Care Discussed with: patient Internal Medicine: Result - Labs CBC & Chem 7: 04/19/18 09:13 04/19/18 04:01 Labs: Short CBC 04/19/18 04/19/18 Range/Units 04:01 09:13 WBC 10.1 10.2 (4.3-11.1) K/mcL Hgb 9.5 L 9.3 L (11.5-15.4) g/dL Hct 29.5 L 28.9 L (35.3-44.9) % Plt Count 401 H 391 (140-400) K/mcL Neutrophils # 8.9 (1.6-8.9) K/mcL BMP 04/19/18 04:01 Sodium 135 L Potassium 4.4 Chloride 104 Carbon Dioxide 22 L BUN 20 Creatinine 1.29 H Glucose 129 H Calcium 9.0 Liver Function 04/19/18 Range/Units 04:01 Total Bilirubin 0.3 (0.3-1.0) mg/dL AST 16 (13-39) Units/L ALT 8 (7-52) Units/L Alkaline Phosphatase 85 (34-104) Units/L Albumin 3.7 (3.5-5.7) g/dL - ABG Interpretation ABG results: PT/INR, D-dimer PT 14.2 Seconds (9.4-12.1) H 04/19/18 09:13 - Impressions Impressions Pulmonary Perfusion Imaging 04/18/18 10:05 IMPRESSION: High probability for pulmonary embolus. The findings were sent to the Radiology Results Communication Center at 9:18 am on 04/19/2018to be communicated to a licensed caregiver. D/ / 04/19/2018 09:23:00 Lorie Bennett MD / isabel Interpreting Provider: Lorie Bennett MD Chest X-Ray 04/19/18 07:55 IMPRESSION: Mild multifocal segmental atelectasis versus pneumonia. D/ / Emeka Cheek MD / Emeka Cheek MD Interpreting Provider: Emeka Cheek MD Consult Discharge Plan - Plan Referrals: Shayy Selas DO [Primary Care Provider] - 08/12/18 9:15 am (6 month f/u) Trinity Benítez, BRUSH CLEANER [Advanced Practice Nurse] - 04/25/18 10:00 am (1) Deep vein thrombosis of lower extremity Qualifiers: Affected thrombotic vein of extremity: iliac Chronicity: acute Laterality: left Qualified Code(s): I82.422 - Acute embolism and thrombosis of left iliac vein (3) Type 2 diabetes mellitus Qualifiers: Diabetes mellitus retirement insulin use: with terminal supervisor use Diabetes mellitus complication status: with unspecified complications Qualified Code(s): E11.8 - Type 2 diabetes mellitus with unspecified complications; Z79.4 - terminal operations manager (current) use of insulin (4) Metastatic lung cancer (metastasis from lung to other site) Qualifiers: Laterality: unspecified laterality Qualified Code(s): C34.90 - Malignant neoplasm of unspecified part of unspecified bronchus or lung (5) Hypothyroidism Qualifiers: Hypothyroidism type: unspecified Qualified Code(s): E03.9 - Hypothyroidism, unspecified
[2018-04-19] MEDS ORDERED: traMADol 50 MG TABLET PO ONE (20:43)
[2018-04-20 05:35] LABS: Hematocrit 26.1 % (35.3-44.9); Hemoglobin 8.5 g/dL (11.5-15.4)
[2018-04-20 05:52] LABS: BUN/Creatinine Ratio 18 (6-26); Blood Urea Nitrogen 17 mg/dL (6-20); Calcium 9.1 mg/dL (8.6-10.3); Carbon Dioxide 21 mEq/L (23-29); Chloride 102 mEq/L (98-107); Glucose 127 mg/dL (70-105); Osmolality,Calculated 279 (280-300); Potassium 4.2 mEq/L (3.5-5.1); Sodium 133 mEq/L (136-145); eGFR For Non-African Americans > 60 (> 60)
[2018-04-20] MEDS: Heparin 25,000 UNIT/500 ML D5W 25,000 UNIT/500 ML BAG IVC SCH ×2 (06:39→07:51)
[2018-04-20] MEDS: Insulin LISPRO 300 UNITS/3 ML VIAL SQ SCH ×4 (07:41→20:27)
[2018-04-20] MEDS: Magnesium Oxide 400 MG TABLET PO SCH ×2 (07:52→20:29)
[2018-04-20] MEDS: levETIRAcetam 250 MG TABLET PO SCH ×2 (07:53→20:29)
--- NOTE | 2018-04-20 10:12 | Internal Med Progress Note ---
Hospitalist Progress Note - Encounter Date of Encounter: 04/20/18 Time of Encounter: 09:00 - Subjective Interval History: Able to move her left foot/ankle better. REdness also decreasing although it is still swollen. No fever/chills, chest pain, or hemoptysis. - Exam Vitals: Temp Pulse Resp BP Pulse Ox 98.2 F 95 15 99/64 96 04/20/18 06:28 04/20/18 06:28 04/20/18 06:28 04/20/18 06:28 04/20/18 06:28 Exam: Gen: Alert awake oriented interactive in not acute distress. Cardiac: Normal rate and rhythm, no murmur Resp: Clear to auscultation MSK: Left leg edema appears unchanged but it is less tense. Improving perfusion. non-tender on palpation. DP felt Abdomen: soft, nontender - Assessment and Plan (1) Deep vein thrombosis of lower extremity Current Visit: Yes Status: Acute Assessment and Plan: extensive left leg DVT involving ilio, femoral, popliteal, and tibial vein hx of metastatic small cell lung cancer on heparin gtt, continue V/Q scan: high probability of PE Continue to elevate left leg, remain bed rest per vascular surgery vascular surgery input appreciated: Possible venous surgery on Sunday if there is no significant improvement with current mx (2) CHASIDY (acute kidney injury) Current Visit: Yes Status: Resolved Assessment and Plan: Improving with IV fluid, will monitor off IVF Avoid nephrotoxins Continue to hold Lasix (3) Type 2 diabetes mellitus Current Visit: No Status: Chronic Assessment and Plan: On Lantus and sliding scale Humalog at home Continue low-dose sliding scale ADA diet, Accu-Cheks before meals and at bedtime (4) Metastatic lung cancer (metastasis from lung to other site) Current Visit: Yes Status: Chronic Assessment and Plan: outpatient follow up given the history of malignancy, lovenox would be the best choice at the time of discharge for DVT continue Keppra for seizure prophylaxis nutrition consult (5) Hypothyroidism Current Visit: No Status: Chronic Assessment and Plan: continue home meds - Time Spent with Patient Total time spent is greater than 50% in coordination of care (as documented) at patient's floor/unit and/or counseling patient: Plan of Care Discussed with: patient Internal Medicine: Result - Labs CBC & Chem 7: 04/20/18 04:24 04/20/18 04:24 Labs: Short CBC 04/20/18 Range/Units 04:24 Hgb 8.5 L (11.5-15.4) g/dL Hct 26.1 L (35.3-44.9) % BMP 04/20/18 04:24 Sodium 133 L Potassium 4.2 Chloride 102 Carbon Dioxide 21 L BUN 17 Creatinine 0.95 Glucose 127 H Calcium 9.1 - ABG Interpretation ABG results: PT/INR, D-dimer PT 14.2 Seconds (9.4-12.1) H 04/19/18 09:13 - Impressions Impressions Pulmonary Perfusion Imaging 04/18/18 10:05 IMPRESSION: High probability for pulmonary embolus. The findings were sent to the Radiology Results Communication Center at 9:18 am on 04/19/2018to be communicated to a licensed caregiver. D/ / 04/19/2018 09:23:00 Lorie Bennett MD / isabel Interpreting Provider: Lorie Bennett MD Consult Discharge Plan - Plan Referrals: Shayy Seals DO [Primary Care Provider] - 08/12/18 9:15 am (6 month f/u) Trinity Benítez PROCEDURES RN [Advanced Practice Nurse] - 04/25/18 10:00 am (1) Deep vein thrombosis of lower extremity Qualifiers: Affected thrombotic vein of extremity: iliac Chronicity: acute Laterality: left Qualified Code(s): I82.422 - Acute embolism and thrombosis of left iliac vein (3) Type 2 diabetes mellitus Qualifiers: Diabetes mellitus long-term insulin use: with long-term use Diabetes mellitus complication status: with unspecified complications Qualified Code(s): E11.8 - Type 2 diabetes mellitus with unspecified complications; Z79.4 - superintendent container terminal (current) use of insulin (4) Metastatic lung cancer (metastasis from lung to other site) Qualifiers: Laterality: unspecified laterality Qualified Code(s): C34.90 - Malignant neoplasm of unspecified part of unspecified bronchus or lung (5) Hypothyroidism Qualifiers: Hypothyroidism type: unspecified Qualified Code(s): E03.9 - Hypothyroidism, unspecified
--- NOTE | 2018-04-20 12:16 | Vascular/Endovas Progress Note ---
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 (2) Deep vein thrombosis of lower extremity Current Visit: Yes Status: Acute Diffuse left lower extremity DVT. Improvement of perfusion back to normal for left foot and ankle from an arterial perspective. The left thigh and calf edema however has not shown any significant improvement over the last 24 hours. I again encouraged patient to keep the left lower extremity elevated as much as possible with the level of the knee and ankle higher than the heart. I will reevaluate the patient tomorrow. If there is no significant improvement I would then recommend an attempt at venous thrombectomy of the left lower extremity under general endotracheal anesthesia. I reviewed this again with the patient and her . Potential risks and benefits as well as compilations and alternatives were reviewed. The patient was made aware that there is no guarantee that this procedure will successfully restore a lumen to the main venous structures of the left lower extremity but that the procedure is intended to facilitate her recovery and to improve function for the left lower extremity. All questions were answered. (3) Metastatic lung cancer (metastasis from lung to other site) Current Visit: Yes Status: Chronic Patient has known metastatic small cell lung cancer. She is undergoing active treatment as directed from the oncology clinic. Qualifiers: Laterality: unspecified laterality Qualified Code(s): C34.90 - Malignant neoplasm of unspecified part of unspecified bronchus or lung - Subjective Interval history: Patient had an uneventful night. She has more motion in her left foot and ankle. Still has difficulty lifting her left leg up and off the bed in a straight leg raise type of movement. Vital Signs, Last 4 Hours Temp Pulse Resp BP Pulse Ox 04/20/18 10:34 98.3 F 95 14 108/70 96 - Physical Examination General: Present: Conversant, No Apparent Distress Vascular: Present: Normal capillary refill, Edema (No significant change in left thigh and left calf edema.), Color/Temperature (Left foot warm and pink) Results 04/20/18 04:24 04/20/18 04:24 Lab Results, Last 24 hours 04/20/18 04/20/18 04:24 04:24 Hgb 8.5 L Hct 26.1 L Sodium 133 L Potassium 4.2 Chloride 102 Carbon Dioxide 21 L BUN 17 Creatinine 0.95 Glucose 127 H Calcium 9.1 Consult Discharge Plan - Plan Referrals: Shayy Seals DO [Primary Care Provider] - 08/12/18 9:15 am (6 month f/u) Trinity Benítez CNP [Advanced Practice Nurse] - 04/25/18 10:00 am
[2018-04-21] MEDS: *HR* Heparin 5,000 UNIT/ML VIAL IVP PRN ×2 (05:46→19:10)
[2018-04-21] MEDS: levETIRAcetam 250 MG TABLET PO SCH ×2 (07:51→21:02)
[2018-04-21] MEDS: Magnesium Oxide 400 MG TABLET PO SCH ×2 (07:51→21:02)
[2018-04-21] MEDS: Insulin LISPRO 300 UNITS/3 ML VIAL SQ SCH ×4 (07:51→20:49)
[2018-04-21] MEDS: Heparin 25,000 UNIT/500 ML D5W 25,000 UNIT/500 ML BAG IVC SCH (09:47)
--- NOTE | 2018-04-21 10:15 | Internal Med Progress Note ---
Hospitalist Progress Note - Encounter Date of Encounter: 04/21/18 Time of Encounter: 09:15 - Subjective Interval History: Able to move her left leg better. Swelling also seems to have improved from yesterday. No fever/chills, chest pain, shortness of breath, or hemoptysis. - Exam Vitals: Temp Pulse Resp BP Pulse Ox 98.2 F 111 16 108/65 94 04/21/18 07:05 04/21/18 07:05 04/21/18 07:05 04/21/18 07:05 04/21/18 07:05 Exam: Gen: Alert awake oriented interactive in not acute distress. Cardiac: Normal rate and rhythm, no murmur Resp: Clear to auscultation MSK: Left leg edema appears to be better as her thigh and calf are less tense. Improving perfusion. non-tender on palpation. DP felt Abdomen: soft, nontender - Assessment and Plan (1) Deep vein thrombosis of lower extremity Current Visit: Yes Status: Acute Assessment and Plan: extensive left leg DVT involving ilio, femoral, popliteal, and tibial vein hx of metastatic small cell lung cancer on heparin gtt, continue V/Q scan: high probability of PE Continue to elevate left leg, remain bed rest per vascular surgery vascular surgery input appreciated: Possible venous surgery on tomorrow if there is no significant improvement with current mx (2) CHASIDY (acute kidney injury) Current Visit: Yes Status: Resolved Assessment and Plan: Improving with IV fluid, will monitor off IVF Avoid nephrotoxins Continue to hold Lasix (3) Type 2 diabetes mellitus Current Visit: No Status: Chronic Assessment and Plan: On Lantus and sliding scale Humalog at home Continue low-dose sliding scale ADA diet, Accu-Cheks before meals and at bedtime (4) Metastatic lung cancer (metastasis from lung to other site) Current Visit: Yes Status: Chronic Assessment and Plan: outpatient follow up given the history of malignancy, lovenox would be the best choice at the time of discharge for DVT continue Keppra for seizure prophylaxis nutrition consult (5) Hypothyroidism Current Visit: No Status: Chronic Assessment and Plan: continue home meds - Time Spent with Patient Total time spent is greater than 50% in coordination of care (as documented) at patient's floor/unit and/or counseling patient: Plan of Care Discussed with: patient Internal Medicine: Result - Labs CBC & Chem 7: 04/20/18 04:24 04/20/18 04:24 - ABG Interpretation ABG results: PT/INR, D-dimer PT 14.2 Seconds (9.4-12.1) H 04/19/18 09:13 Consult Discharge Plan - Plan Referrals: Shayy Seals DO [Primary Care Provider] - 08/12/18 9:15 am (6 month f/u) Trinity Benítez BAKERY SUPERVISOR [Advanced Practice Nurse] - 04/25/18 10:00 am (1) Deep vein thrombosis of lower extremity Qualifiers: Affected thrombotic vein of extremity: iliac Chronicity: acute Laterality: left Qualified Code(s): I82.422 - Acute embolism and thrombosis of left iliac vein (3) Type 2 diabetes mellitus Qualifiers: Diabetes mellitus shelter insulin use: with shelter use Diabetes mellitus complication status: with unspecified complications Qualified Code(s): E11.8 - Type 2 diabetes mellitus with unspecified complications; Z79.4 - care home (current) use of insulin (4) Metastatic lung cancer (metastasis from lung to other site) Qualifiers: Laterality: unspecified laterality Qualified Code(s): C34.90 - Malignant neoplasm of unspecified part of unspecified bronchus or lung (5) Hypothyroidism Qualifiers: Hypothyroidism type: unspecified Qualified Code(s): E03.9 - Hypothyroidism, unspecified
--- NOTE | 2018-04-21 15:43 | Vascular/Endovas Progress Note ---
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 (2) Deep vein thrombosis of lower extremity Current Visit: Yes Status: Acute Diffuse left lower extremity DVT. The patient has had only mild improvement since with elevation and anticoagulation. Therefore I recommended that we proceed on with an attempt at mechanical thrombectomy and tPA therapy of the left lower extremity via a popliteal approach. All questions were answered. Patient agrees to proceed as recommended. We will plan this procedure for tomorrow afternoon. (3) Metastatic lung cancer (metastasis from lung to other site) Current Visit: Yes Status: Chronic Patient has known metastatic small cell lung cancer. She is undergoing active treatment as directed from the oncology clinic. Qualifiers: Laterality: unspecified laterality Qualified Code(s): C34.90 - Malignant neoplasm of unspecified part of unspecified bronchus or lung - Subjective Interval history: Patient has no new complaints. She does not notice any significant change in the swelling of her left lower extremity. She denies any pain in her left foot. Patient is still on intravenous heparin drip. Patient has kept the left lower extremity elevated as directed. Vital Signs, Last 4 Hours Temp Pulse Resp BP Pulse Ox 04/21/18 15:11 98.8 F 99 15 112/72 94 - Physical Examination General: Present: Conversant, No Apparent Distress HEENT: Present: Atraumatic Neck: Absent: JVD Neuro: Present: Alert and responsive Vascular: Present: Normal capillary refill, Pulse, normal, Edema (Patient continues to have significant edema of the left calf and left thigh. The edema is less tense and is nontender but the overall size is unchanged.) Results 04/20/18 04:24 04/20/18 04:24 Consult Discharge Plan - Plan Referrals: Shayy Seals DO [Primary Care Provider] - 08/12/18 9:15 am (6 month f/u) Trinity Benítez CNP [Advanced Practice Nurse] - 04/25/18 10:00 am
--- NOTE | 2018-04-21 21:06 | Anesthesia Evaluation PreOp ---
Addendum entered and electronically signed by Nickolas Canas DO 04/22/18 12:46: Vital Signs/O2 Sat, Most Current Temp Pulse Resp BP Pulse Ox 98.0 F 98 16 110/70 96 04/22/18 10:39 04/22/18 10:39 04/22/18 10:39 04/22/18 10:39 04/22/18 10:39 Agree with Assessment and will proceed with GA Original Note: Date of Encounter: 04/21/18 Time of Encounter: 21:04 - Past History Planned Operation: [facility]G [facility] VENOUS THROMBECTOMY - POPLITEAL APPROACH Cardiac History: CHF (DEPENDENT EDEMA), Other (LEFT ILLIAC FEMORAL TIBIAL DVT, NO PE CLINICALLY) Pulmonary History: Smoker, Other (STAGE IV METASTATIC RIGHT LUNG CA, ON CHEMO & PALLIATIVE XRT, RIGHT PLEURAL EFFUSION, RETROPPERITONEAL LYMPHADENOPATHY, LEFT ADRENAL METS) ACTIVATED SLUDGE ATTENDANT History: Seizures (POST CRANIOTOMY, MAINTAINED ON KEPPRA), CVA (LEFT HEMIPARESIS WITH BRAIN METS, NO RESIDUAL), Other (BRAIN METS, POST CRANIOTOMY, LAST MRI NEGATIVE, L4/5 STENOSIS, CHRONIC PAIN, ON DURAGESIC 50 & OXYCODONE 15 MG Q6H) Other Medical History: Renal (CHASIDY ON ADMISSION, RESOLVED), Diabetes Type II, Thyroid, GERD, Other (ACUTE ANEMIA) Anesthesia History: Past Anesthesia, Problems (PONV) Alcohol Use: none Drug use: none Medications and Allergies Magic Mouthwash [Magic Mouthwash BLM] 10 ml PO QID PRN #240 ml 01/07/16 [Rx] Insulin LISPRO [Humalog] 1 - 15 unit SQ HS 12/22/16 [History] LevETIRAcetam [Keppra] 1,000 mg PO BID 04/26/17 [History] Magnesium Oxide [Magnesium] 1 tab PO BID #60 tablet 06/28/17 [Rx] Docusate Sodium [Colace] 1 tab PO BID #60 capsule 07/06/17 [Rx] LORazepam [Ativan] 1 tab PO AD PRN 10 Days #10 tablet 07/06/17 [Rx] Lidocaine/Prilocaine [Emla] 1 appl TP AD #30 gm 07/06/17 [Rx] Ondansetron HCl [Zofran] 4 mg PO Q4H PRN #30 tablet 02/15/18 [Rx] Prochlorperazine Maleate [Compazine] 10 mg PO Q6H PRN #30 tablet 02/15/18 [Rx] Oxycodone HCl 1 tab PO Q6H PRN 30 Days #120 tablet 03/01/18 [Rx] Omeprazole 20 mg PO DAILY #30 tablet. 03/15/18 [Rx] Furosemide [Lasix] 1 tab PO DAILY PRN #10 tablet 04/03/18 [Rx] FentaNYL PATCH [Duragesic] 1 patch TD Q72H 30 Days #10 patch.[id number] 04/17/18 [Rx] Loperamide [Imodium] 1 tab PO Q6H PRN #30 capsule 04/17/18 [Rx] Insulin Glargine [Lantus] 0 - 27 unit SQ HS 04/18/18 [History] Levothyroxine [Synthroid] 125 mcg PO QAM 04/18/18 [History] Allergy/AdvReac Type Severity Reaction Status Date / Time morphine AdvReac Nausea Verified 04/18/18 04:18 - Meds/Allergy Pre-op Review Medications Reviewed: Yes Allergies Reviewed: Yes Beta Blockers on Current Med List: No Anesthesia Results - Labs 04/20/18 04:24 04/20/18 04:24 Laboratory Tests 04/18/18 04/19/18 04/19/18 08:32 04:01 04:01 Plt Count 401 H PT INR Heparin Anti-Xa, Unfract Creatinine Est GFR (Non-Af Amer) Calcium Serum Total Protein 7.1 Albumin 3.7 Stool Occult Bld Scrn Negative 04/19/18 04/20/18 04/21/18 09:13 04:24 04:22 Plt Count PT 14.2 H INR 1.3 Heparin Anti-Xa, Unfract 0.22 L Creatinine 0.95 Est GFR (Non-Af Amer) > 60 Calcium 9.1 Serum Total Protein Albumin Stool Occult Bld Scrn Anesthesia Exam Vital Signs/O2 Sat/Glucose, Most Recent Temp Pulse Resp BP Pulse Ox 98.7 F 95 15 110/69 95 04/21/18 19:14 04/21/18 19:14 04/21/18 19:14 04/21/18 19:14 04/21/18 19:14 Blood Glucose* 122 Weight: 88 KG - BMI 32 NPO (# of Hours): NPO >MN - HEENT Mallampati: II Teeth: Normal Oral Opening: Greater than 3 - ACTIVATED SLUDGE ATTENDANT LOC: Oriented ACTIVATED SLUDGE ATTENDANT Motor: Normal RUE, Normal LUE, Normal RLE, Normal LLE, Normal Face - Cardiac Rhythm: Regular - Pulmonary Breath Sounds: bilateral Clear Respiratory Effort: Symmetrical - Additional Findings LEFT ANTERIOR CHEST MEDIPORT . SIGNIFICANT Active Medications Fentanyl (Duragesic) 50 mcg TD Q72H TYREE Stop: 10/19/18 08:01 Last Admin: 04/19/18 10:00 Dose: 50 mcg Heparin Sodium (Porcine) (Heparin) 6,000 unit 70 unit/kg (6000 unit) IVP Q6HR PRN PRN Reason: SEE COMMENTS Stop: 10/19/18 08:50 Heparin Sodium (Porcine) (Heparin) 3,000 unit 35 unit/kg (3000 unit) IVP Q6H PRN PRN Reason: SEE COMMENTS Stop: 10/19/18 08:50 Last Admin: 04/21/18 19:10 Dose: 3,000 unit Heparin Sodium/Dextrose (Heparin 25,000 Unit/500 Ml D5w) 25,000 unit in 500 mls @ 23.996 mls/hr IVC .[id number] [facility]; Protocol Stop: 10/19/18 09:01 Last Titration: 04/21/18 19:04 Dose: 15 unit/kg/hr, 25.71 mls/hr Cefazolin Sodium 2,000 mg/ (Sodium Chloride) 100 mls @ 200 mls/hr IVPB ONCE ONE Stop: 04/22/18 08:29 Insulin Human Lispro (Humalog) 0 units SQ HS [facility]; Protocol Stop: 10/18/18 21:01 Last Admin: 04/21/18 20:49 Dose: Not Given Insulin Human Lispro (Humalog) 0 units SQ TIDAC [facility]; Protocol Stop: 10/18/18 11:31 Last Admin: 04/21/18 17:59 Dose: 2 units Levetiracetam (Keppra) 1,000 mg PO BID [facility] Stop: 10/19/18 09:01 Last Admin: 04/21/18 21:02 Dose: 1,000 mg Levothyroxine Sodium (Synthroid) 125 mcg PO 0630 [facility] Stop: 10/19/18 09:01 Last Admin: 04/21/18 05:44 Dose: 125 mcg Lidocaine/Prilocaine (Emla) 1 gm TP AD PRN PRN Reason: SEE COMMENTS Stop: 10/19/18 08:01 Lorazepam (Ativan) 1 mg PO AD PRN PRN Reason: See comments Stop: 10/19/18 07:56 Omeprazole (Prilosec) 20 mg PO DAILY TYREE Stop: 10/19/18 09:01 Last Admin: 04/21/18 07:51 Dose: 20 mg Oxycodone HCl (Roxicodone) 15 mg PO Q6H PRN; Protocol PRN Reason: Pain Stop: 10/19/18 07:56 Last Admin: 04/19/18 08:41 Dose: 15 mg Prochlorperazine Maleate (Compazine) 10 mg PO Q6H PRN PRN Reason: Nausea Stop: 10/19/18 07:56 Anesthesia Assess/Plan ASA Score: 4 Anesthetic Plan: General Monitoring Plan: Standard Monitors Recovery Plan: PACU Anes Supervising Prov Stmt: DISCUSSED WITH PATIENT ANESTHESIA PLAN, RISKS, AND ALTERNATIVES. ALSO DISCUSSED POSSIBLE NEED FOR PRBC TRANSFUSION. THE PATIENT WANTS TO PROCEED. TYPE AND SCREEN ORDERED.
[2018-04-21] MEDS ORDERED: 0.9 % Sodium Chloride 1,000 ML IVC SCH (23:45)
[2018-04-22 00:53] LABS: Basophils # 0.1 K/mcL (0.0-0.2); Basophils % 0.6 %; Eosinophils # 0.5 K/mcL (0.0-0.6); Eosinophils % 5.3 %; Hematocrit 26.6 % (35.3-44.9); Hemoglobin 8.8 g/dL (11.5-15.4); Immature Granulocytes % 0.9 % (0-4); Lymphocytes # 0.9 K/mcL (0.6-4.6); Lymphocytes % 10.5 %; Mean Corpuscular HGB Conc 33.1 g/dL (31.6-35.5); Mean Corpuscular Hemoglobin 30.8 pg (28.0-33.3); Mean Platelet Volume 10.1 fL (9.4-12.4); Monocytes # 0.4 K/mcL (0.0-1.3); Monocytes % 4.4 %; Neutrophils # 6.7 K/mcL (1.6-8.9); Nucleated Red Blood Cells 0.2 /100 WBC (0); Platelet Count 447 K/mcL (140-400); Red Blood Count 2.86 M/mcL (3.82-4.97); Red Cell Distribution Width 15.3 % (11.5-14.5); Segmented Neutrophils % 78.3 %
[2018-04-22 01:03] LABS: INR 1.1; Prothrombin Time 12.3 Seconds (9.4-12.1)
[2018-04-22 01:12] LABS: BUN/Creatinine Ratio 14 (6-26); Blood Urea Nitrogen 13 mg/dL (6-20); Calcium 8.7 mg/dL (8.6-10.3); Carbon Dioxide 26 mEq/L (23-29); Chloride 100 mEq/L (98-107); Glucose 131 mg/dL (70-105); Osmolality,Calculated 282 (280-300); Potassium 4.1 mEq/L (3.5-5.1); Sodium 135 mEq/L (136-145); eGFR For Non-African Americans 59 (> 60)
[2018-04-22] MEDS: Insulin LISPRO 300 UNITS/3 ML VIAL SQ SCH ×4 (07:44→21:44)
[2018-04-22] MEDS: *HR* FentaNYL PATCH 50 MCG PATCH TD SCH (07:45)
[2018-04-22] MEDS: levETIRAcetam 250 MG TABLET PO SCH ×2 (07:49→21:34)
[2018-04-22] MEDS: Magnesium Oxide 400 MG TABLET PO SCH ×2 (07:49→21:34)
[2018-04-22] MEDS ORDERED: Heparin 25,000 UNIT/500 ML D5W 25,000 UNIT/500 ML BAG IVC SCH (10:15)
[2018-04-22 10:49] LABS: Hematocrit 25.3 % (35.3-44.9); Hemoglobin 8.5 g/dL (11.5-15.4); Mean Corpuscular HGB Conc 33.6 g/dL (31.6-35.5); Mean Corpuscular Hemoglobin 30.9 pg (28.0-33.3); Mean Platelet Volume 10.2 fL (9.4-12.4); Platelet Count 429 K/mcL (140-400); Red Blood Count 2.75 M/mcL (3.82-4.97); Red Cell Distribution Width 15.3 % (11.5-14.5)
[2018-04-22 10:57] LABS: Heparin anti-factor XA UFH 0.04 IU/mL (0.30-0.70); INR 1.1; Prothrombin Time 12.2 Seconds (9.4-12.1)
--- NOTE | 2018-04-22 11:55 | Internal Med Progress Note ---
Hospitalist Progress Note - Encounter Date of Encounter: 04/22/18 Time of Encounter: 09:30 - Subjective Interval History: Her left leg continues to improve from both swelling and ROM perspective. No fever/chills, chest pain, shortness of breath, or hemoptysis. - Exam Vitals: Temp Pulse Resp BP Pulse Ox 98.0 F 98 16 110/70 96 04/22/18 10:39 04/22/18 10:39 04/22/18 10:39 04/22/18 10:39 04/22/18 10:39 Exam: Gen: Alert awake oriented interactive in not acute distress. Cardiac: Normal rate and rhythm, no murmur Resp: Clear to auscultation MSK: Left leg edema improving. Improving perfusion. non-tender on palpation. DP felt Abdomen: soft, nontender - Assessment and Plan (1) Deep vein thrombosis of lower extremity Current Visit: Yes Status: Acute Assessment and Plan: extensive left leg DVT involving ilio, femoral, popliteal, and tibial vein hx of metastatic small cell lung cancer V/Q scan: high probability of PE Continue to elevate left leg, remain bed rest per vascular surgery vascular surgery input appreciated: for mechanical thrombectomy and tPA today resume heparin gtt post-op as long as not contraindicated from surgical standpoint (2) CHASIDY (acute kidney injury) Current Visit: Yes Status: Resolved Assessment and Plan: Improving with IV fluid, will monitor off IVF Avoid nephrotoxins Continue to hold Lasix (3) Type 2 diabetes mellitus Current Visit: No Status: Chronic Assessment and Plan: On Lantus and sliding scale Humalog at home Continue low-dose sliding scale ADA diet, Accu-Cheks before meals and at bedtime (4) Metastatic lung cancer (metastasis from lung to other site) Current Visit: Yes Status: Chronic Assessment and Plan: outpatient follow up given the history of malignancy, lovenox would be the best choice at the time of discharge for DVT continue Keppra for seizure prophylaxis follow with nutrition (5) Hypothyroidism Current Visit: No Status: Chronic Assessment and Plan: continue home meds - Time Spent with Patient Total time spent is greater than 50% in coordination of care (as documented) at patient's floor/unit and/or counseling patient: Plan of Care Discussed with: patient Internal Medicine: Result - Labs CBC & Chem 7: 04/22/18 10:22 04/22/18 00:35 Labs: Short CBC 04/22/18 04/22/18 Range/Units 00:35 10:22 WBC 8.6 8.6 (4.3-11.1) K/mcL Hgb 8.8 L 8.5 L (11.5-15.4) g/dL Hct 26.6 L 25.3 L (35.3-44.9) % Plt Count 447 H 429 H (140-400) K/mcL Neutrophils # 6.7 (1.6-8.9) K/mcL BMP 04/22/18 00:35 Sodium 135 L Potassium 4.1 Chloride 100 Carbon Dioxide 26 BUN 13 Creatinine 0.96 Glucose 131 H Calcium 8.7 - ABG Interpretation ABG results: PT/INR, D-dimer PT 12.2 Seconds (9.4-12.1) H 04/22/18 10:22 Consult Discharge Plan - Plan Referrals: Shayy Seals DO [Primary Care Provider] - 08/12/18 9:15 am (6 month f/u) Trinity Benítez PRODUCTION MACHINE COMPUTER OPERATOR [Advanced Practice Nurse] - 04/25/18 10:00 am (1) Deep vein thrombosis of lower extremity Qualifiers: Affected thrombotic vein of extremity: iliac Chronicity: acute Laterality: left Qualified Code(s): I82.422 - Acute embolism and thrombosis of left iliac vein (3) Type 2 diabetes mellitus Qualifiers: Diabetes mellitus penitentiary insulin use: with intermodal truck driver use Diabetes mellitus complication status: with unspecified complications Qualified Code(s): E11.8 - Type 2 diabetes mellitus with unspecified complications; Z79.4 - long term care pharmacist (current) use of insulin (4) Metastatic lung cancer (metastasis from lung to other site) Qualifiers: Laterality: unspecified laterality Qualified Code(s): C34.90 - Malignant neoplasm of unspecified part of unspecified bronchus or lung (5) Hypothyroidism Qualifiers: Hypothyroidism type: unspecified Qualified Code(s): E03.9 - Hypothyroidism, unspecified
[2018-04-22] MEDS ORDERED: Heparin 1,000 UNITS/500 mL 500 ML ONE (12:59)
[2018-04-22] MEDS ORDERED: Bupivacaine-MPF 0.25% 10 ML VIAL ONE (12:59)
[2018-04-22] MEDS ORDERED: ALTEPLASE IVPB ONE (13:01)
[2018-04-22] MEDS ORDERED: Heparin 1,000 UNITS/500 mL 1,000 ML ONE ×2 (13:04→15:48)
[2018-04-22] MEDS ORDERED: *HR* Propofol 200 MG/20 ML VIAL IVP ONE (13:06)
[2018-04-22] MEDS ORDERED: *HR* Midazolam HCl 2 MG/2 ML VIAL ONE (13:06)
[2018-04-22] MEDS ORDERED: *HR* FentaNYL (PF) 100 MCG/2 ML VIAL ONE (13:06)
[2018-04-22] MEDS ORDERED: Isovue-300 50 ML VIAL IVP ONE ×2 (13:12→15:48)
[2018-04-22] MEDS ORDERED: *HR* HYDROmorphone 2 MG/ML SYRINGE ONE (13:12)
[2018-04-22] MEDS ORDERED: Acetaminophen IV 1,000 MG/100 ML INFUS..BTL ONE (13:13)
[2018-04-22] MEDS ORDERED: Alteplase (Cathflo) 10 MG in 0.9 % Sodium Chloride 100 ML IVPB ONE (13:30)
[2018-04-22] MEDS: Heparin 25,000 UNIT/500 ML D5W 25,000 UNIT/500 ML BAG IVC SCH (14:00)
[2018-04-22] MEDS ORDERED: Ondansetron 4 MG/2 ML VIAL ONE (14:44)
[2018-04-22] MEDS ORDERED: Lidocaine -MPF 4% 5 ML AMPUL ONE (14:44)
[2018-04-22] MEDS ORDERED: Lidocaine -MPF 2% 2 ML VIAL ONE (14:44)
[2018-04-22] MEDS ORDERED: *HR* Succinylcholine 200 MG/10 ML VIAL IVP ONE (14:44)
[2018-04-22] MEDS ORDERED: *HR* HYDROmorphone (PF) 1 MG/ML SYRINGE IVP PRN ×2 (15:06→16:52)
[2018-04-22] MEDS ORDERED: *HR* OxyCODONE Immed Rel 5 MG TABLET PO PRN ×2 (15:06→16:52)
[2018-04-22] MEDS ORDERED: *HR* Promethazine 25 MG/ML VIAL IVP PRN ×2 (15:06→16:52)
[2018-04-22] MEDS ORDERED: *HR* PHENYLEPHRINE 1,000 MCG/10 ML SYRINGE IVP ONE (15:42)
[2018-04-22] MEDS ORDERED: *HR* Heparin 5,000 UNIT/ML VIAL ONE (16:01)
--- NOTE | 2018-04-22 16:17 | Operative Note ---
Date of procedure: 04/22/18 Pre-op diagnosis: acute left ilio-tibial DVT/metastatic lung CA Post-op diagnosis: same Procedure: Pharmacomechanical thrombectomy of left ilio-tibial DVT with tPA and Angiojet device. Complications: 0 Anesthesia: GETA Surgeon: Santos Dang Was there an supply chain assistant present: No Estimated blood loss (cc): 250 Specimen: 0 Condition: stable Disposition: PACU Procedure in Detail: History Marnie Steele is a 57-year-old white female who was admitted via the emergency room on the morning of cause of his pain and swelling of the left lower extremity. Patient states she had been having symptoms in both legs but early in the morning she developed significant swelling and pain in the leg which prompted her to come to the emergency room. Venous duplex scan showed an ilial tibial DVT that was acute. Vascular surgery was asked see the patient because initially there was concern about arterial perfusion of the left foot. This improved with anticoagulation and elevation. However despite adequate anticoagulation the patient did not have a significant improvement of her left lower extremity edema. She had marked faculties with straight leg raising and moving and bending the left leg. Therefore the patient was offered pharmacal mechanical thrombectomy with TPA and AngioJet. The goal was to decrease patient's symptoms and restore a channel through the thrombosed vessels. In light of the patient's overall medical status this is viewed as a technique to facilitate her activities of daily living and try to avoid placing the patient in an extended care facility. Procedure After informed consent was obtained patient was taken the operating room. General endotracheal anesthesia was established. The patient was then rotated into a prone position. The left lower extremity was sterilely prepped and draped after insertion of a Cunningham catheter. A timeout protocol was observed. Then using ultrasound guidance the left popliteal vein was punctured with a micropuncture technique. A 4-Bhutanese sheath was then placed. A venogram was then performed a left lower extremity. This showed diffuse occlusive venous thrombus throughout the superficial femoral and common femoral and iliac venous systems. With this done the sheath was exchanged for an 8-Bhutanese sheath. A Zalente AngioJet catheter was then advanced over a wire and 10 mg of TPA and 100 mL's of normal saline was then infused with the power pulse procedure throughout the thrombus beginning at the proximal iliac and into the popliteal vein. After waiting 25 minutes the AngioJet catheter was then reintroduced and for 2 cycles beginning at the iliac vein through the popliteal vein the rheolytic mechanical thrombectomy was performed. At this point the venogram was repeated. This showed dramatic improvement in the popliteal and superficial femoral vein. There was residual thrombus in the common femoral and iliac venous system as well as extension up into the proximal common iliac vein. Therefore this area was retreated with the mechanical him back to me in attempt to further open the lumen. It was noted that contrast was not not found in the left profunda femoris vein. A completion Solange Nabil was performed after this additional mechanical thrombectomy treatment. This showed improvement in the proximal area though there was significant clot burden. In light of the amount of TPA and fluid used no further attempts were made. Clearly there was dramatic improvement of the venous outflow and they should suffice to assist the patient in more rapid control of her edema and physical activity. Therefore the 8-Bhutanese sheath was then removed. An additional bolus of heparin at 1000 units was administered. Direct manual pressure was applied with a V pad and then a occlusive dressing applied to the left popliteal fossa puncture site. The patient was then rolled back into a supine position. The endotracheal tube was removed. The patient was neurologically intact. There is no signs of bleeding or hemodynamic instability. She was then taken from the operating room to the recovery room in stable condition area a total of 10 mg of TPA were administered. Approximate 70 mL's of contrast were used for this procedure. There were no intraoperative complications
[2018-04-22] MEDS ORDERED: *HR* LORazepam 1 MG TABLET PO PRN (16:52)
[2018-04-22] MEDS ORDERED: Naloxone 0.4 MG/ML INJ IVP PRN ×2 (16:52)
[2018-04-22] MEDS ORDERED: *HR* Dextrose 50 % in Water (Syg) 50 ML SYRINGE IVP PRN (16:52)
[2018-04-22] MEDS ORDERED: Dextrose Gel 15 GM/37.5 ML TUBE PO PRN ×2 (16:52)
[2018-04-22] MEDS ORDERED: Magic Mouthwash 10 ML UD Cup PO PRN (16:52)
[2018-04-22] MEDS ORDERED: D5% in Water 1,000 ML IVC PRN (16:52)
--- NOTE | 2018-04-22 16:55 | Anesthesia Evaluation Post Op ---
Date of Encounter: 04/22/18 Time of Encounter: 16:54 - Vital Signs Vital Signs: Vital Signs/O2 Sat, Most Current Temp Pulse Resp BP Pulse Ox 98.0 F 103 16 124/74 100 04/22/18 16:47 04/22/18 16:47 04/22/18 16:47 04/22/18 16:47 04/22/18 16:47 - Lungs Lungs: Clear Ascult./Percussion - Airway Airway: Non-obstructed - Cardiovascular Regular Rate - Mental Status Mental Status: Alert & Oriented, Answers Appropriately - Pain Pain Scale: 0 Pain Scale used: Numeric (1 - 10) - Nausea Vomiting Nausea Vomiting: Not Present - Hydration Hydration: NPO, Cunningham catheter - Discharge PostOp Status: Transfer Patient to floor
[2018-04-23 06:50] LABS: Hemoglobin 7.8 g/dL (11.5-15.4)
[2018-04-23] MEDS: Insulin LISPRO 300 UNITS/3 ML VIAL SQ SCH ×4 (07:49→20:59)
[2018-04-23] MEDS: Heparin 25,000 UNIT/500 ML D5W 25,000 UNIT/500 ML BAG IVC SCH (07:52)
[2018-04-23] MEDS: levETIRAcetam 250 MG TABLET PO SCH ×2 (07:55→20:01)
[2018-04-23] MEDS: Magnesium Oxide 400 MG TABLET PO SCH ×2 (07:55→20:02)
--- NOTE | 2018-04-23 08:21 | Vascular/[facility] Progress Note ---
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 (2) Deep vein thrombosis of lower extremity Current Visit: Yes Status: Acute Diffuse left lower extremity DVT. POD#1 from left leg pharmocomechanical thrombectomy. Clinically improved. Begin ambulation.OK to transition anticoagulation therapy from IV heparin. (3) Metastatic lung cancer (metastasis from lung to other site) Current Visit: Yes Status: Chronic Patient has known metastatic small cell lung cancer. She is undergoing active treatment as directed from the oncology clinic. Qualifiers: Laterality: unspecified laterality Qualified Code(s): C34.90 - Malignant neoplasm of unspecified part of unspecified bronchus or lung - Subjective Interval history: Patient has no new complaints. Vital Signs, Last 4 Hours Temp Pulse Resp BP Pulse Ox 04/23/18 06:55 98.1 F 95 15 107/67 96 - Physical Examination General: Present: Conversant, No Apparent Distress Vascular: Present: Normal capillary refill, Pulse, normal, Edema (left leg softer with mild decrease in edema) Skin: Present: No rashes noted on visualized skin Results 04/23/18 05:55 04/22/18 00:35 Lab Results, Last 24 hours 04/22/18 04/22/18 04/23/18 10:22 10:22 05:55 WBC 8.6 Hgb 8.5 L 7.8 L Hct 25.3 L 24.0 L Plt Count 429 H INR 1.1 Consult Discharge Plan - Plan Referrals: Shayy Seals DO [Primary Care Provider] - 08/12/18 9:15 am (6 month f/u) Trinity Benítez CNP [Advanced Practice Nurse] - 04/25/18 10:00 am Santos Dang MD [Partnered Physician] -
--- NOTE | 2018-04-23 08:21 | Internal Med Progress Note ---
Hospitalist Progress Note - Encounter Date of Encounter: 04/23/18 Time of Encounter: 08:21 - Exam Vitals: Temp Pulse Resp BP Pulse Ox 98.1 F 95 15 107/67 96 04/23/18 06:55 04/23/18 06:55 04/23/18 06:55 04/23/18 06:55 04/23/18 06:55 - Assessment and Plan (1) Type 2 diabetes mellitus Current Visit: No Status: Chronic (2) Deep vein thrombosis of lower extremity Current Visit: Yes Status: Acute (3) CHASIDY (acute kidney injury) Current Visit: Yes Status: Resolved (4) Metastatic lung cancer (metastasis from lung to other site) Current Visit: Yes Status: Chronic (5) Hypothyroidism Current Visit: No Status: Chronic - Time Spent with Patient Total time spent is greater than 50% in coordination of care (as documented) at patient's floor/unit and/or counseling patient: Internal Medicine: Result - Labs CBC & Chem 7: 04/23/18 05:55 04/22/18 00:35 Labs: Short CBC 04/22/18 04/23/18 Range/Units 10:22 05:55 WBC 8.6 (4.3-11.1) K/mcL Hgb 8.5 L 7.8 L (11.5-15.4) g/dL Hct 25.3 L 24.0 L (35.3-44.9) % Plt Count 429 H (140-400) K/mcL - ABG Interpretation ABG results: PT/INR, D-dimer PT 12.2 Seconds (9.4-12.1) H 04/22/18 10:22 - Impressions Impressions Femur X-Ray 04/22/18 14:30 IMPRESSION: Fluoroscopy was utilized for the purposes of left lower extremity thrombectomy D/ / Robinson Sosa MD / Robinson Sosa MD Interpreting Provider: Robinson Sosa MD Fluoroscopy 04/22/18 14:30 IMPRESSION: Fluoroscopy was utilized for the purposes of left lower extremity thrombectomy D/ / Robinson Sosa MD / Robinson Sosa MD Interpreting Provider: Robinson Sosa MD Pelvis X-Ray 04/22/18 14:30 IMPRESSION: Fluoroscopy was utilized for the purposes of left lower extremity thrombectomy D/ / Robinson Sosa MD / Robinson Sosa MD Interpreting Provider: Robinson Sosa MD Consult Discharge Plan - Plan Referrals: Shayy Seals DO [Primary Care Provider] - 08/12/18 9:15 am (6 month f/u) Trinity Benítez CNP [Advanced Practice Nurse] - 04/25/18 10:00 am Santos Dang MD [Partnered Physician] - (1) Type 2 diabetes mellitus Qualifiers: Qualified Code(s): E11.8 - Type 2 diabetes mellitus with unspecified complications; Z79.4 - halfway (current) use of insulin (2) Deep vein thrombosis of lower extremity Qualifiers: Qualified Code(s): I82.422 - Acute embolism and thrombosis of left iliac vein (4) Metastatic lung cancer (metastasis from lung to other site) Qualifiers: Qualified Code(s): C34.90 - Malignant neoplasm of unspecified part of unspecified bronchus or lung (5) Hypothyroidism Qualifiers: Qualified Code(s): E03.9 - Hypothyroidism, unspecified
--- NOTE | 2018-04-23 08:48 | Internal Med Progress Note ---
Hospitalist Progress Note - Encounter Date of Encounter: 04/23/18 Time of Encounter: 08:46 - Subjective Interval History: Patient seen and examined this morning. No acute overnight events. Denies new complains. hasn't been ambulating. No fever, chills, N/V/D. - Exam Vitals: Temp Pulse Resp BP Pulse Ox 98.1 F 95 15 107/67 96 04/23/18 06:55 04/23/18 06:55 04/23/18 06:55 04/23/18 06:55 04/23/18 08:25 Exam: Gen: Alert awake oriented interactive in not acute distress. Cardiac: Normal rate and rhythm, no murmur Resp: Clear to auscultation MSK: Left leg edema improving. Improving perfusion. non-tender on palpation. pulse present. Abdomen: soft, nontender, montgomery in place - Assessment and Plan (1) Type 2 diabetes mellitus Current Visit: No Status: Chronic (2) Deep vein thrombosis of lower extremity Current Visit: Yes Status: Acute (3) CHASIDY (acute kidney injury) Current Visit: Yes Status: Resolved (4) Metastatic lung cancer (metastasis from lung to other site) Current Visit: Yes Status: Chronic (5) Hypothyroidism Current Visit: No Status: Chronic - Summary of Assessment and Plan Summary of Assessment and Plan: Deep vein thrombosis of lower extremity - x of metastatic small cell lung cancer - V/Q scan: high probability of PE - s/p mechanical thrombectomy and tPA today - c/w heparin gtt post-op as long as not contraindicated from surgical standpoint - ambulate with PT/OT. Placement based on PT/OT CHASIDY - improved with IVF - Avoid nephrotoxins - Continue to hold Lasix Type 2 diabetes mellitus - Continue low-dose sliding scale - ADA diet, Accu-Cheks before meals and at bedtime Metastatic lung cancer - outpatient follow up - given the history of malignancy, lovenox would be the best choice at the time of discharge for DVT - continue Keppra for seizure prophylaxis Hypothyroidism - continue home meds - Time Spent with Patient Total time spent is greater than 50% in coordination of care (as documented) at patient's floor/unit and/or counseling patient: Internal Medicine: Result - Labs CBC & Chem 7: 04/23/18 05:55 04/22/18 00:35 Labs: Short CBC 04/22/18 04/23/18 Range/Units 10:22 05:55 WBC 8.6 (4.3-11.1) K/mcL Hgb 8.5 L 7.8 L (11.5-15.4) g/dL Hct 25.3 L 24.0 L (35.3-44.9) % Plt Count 429 H (140-400) K/mcL - ABG Interpretation ABG results: PT/INR, D-dimer PT 12.2 Seconds (9.4-12.1) H 04/22/18 10:22 - Impressions Impressions Femur X-Ray 04/22/18 14:30 IMPRESSION: Fluoroscopy was utilized for the purposes of left lower extremity thrombectomy D/ / Robinson Sosa MD / Robinson Sosa MD Interpreting Provider: Robinson Sosa MD Fluoroscopy 04/22/18 14:30 IMPRESSION: Fluoroscopy was utilized for the purposes of left lower extremity thrombectomy D/ / Robinson Sosa MD / Robinson Sosa MD Interpreting Provider: Robinson Sosa MD Pelvis X-Ray 04/22/18 14:30 IMPRESSION: Fluoroscopy was utilized for the purposes of left lower extremity thrombectomy D/ / Robinson Sosa MD / Robinson Sosa MD Interpreting Provider: Robinson Sosa MD Consult Discharge Plan - Plan Referrals: Shayy Seals DO [Primary Care Provider] - 08/12/18 9:15 am (6 month f/u) Trinity Benítez CNP [Advanced Practice Nurse] - 04/25/18 10:00 am Santos Dang MD [Partnered Physician] - Prescriptions: Enoxaparin [Lovenox] 90 mg SQ Q12HR 15 Days #30 syr (1) Type 2 diabetes mellitus Qualifiers: Diabetes mellitus shelter insulin use: with shelter use Diabetes mellitus complication status: with unspecified complications Qualified Code(s): E11.8 - Type 2 diabetes mellitus with unspecified complications; Z79.4 - FPC (current) use of insulin (2) Deep vein thrombosis of lower extremity Qualifiers: Affected thrombotic vein of extremity: iliac Chronicity: acute Laterality: left Qualified Code(s): I82.422 - Acute embolism and thrombosis of left iliac vein (4) Metastatic lung cancer (metastasis from lung to other site) Qualifiers: Laterality: unspecified laterality Qualified Code(s): C34.90 - Malignant neoplasm of unspecified part of unspecified bronchus or lung (5) Hypothyroidism Qualifiers: Hypothyroidism type: unspecified Qualified Code(s): E03.9 - Hypothyroidism, unspecified
[2018-04-23 09:47] LABS: BUN/Creatinine Ratio 15 (6-26); Blood Urea Nitrogen 14 mg/dL (6-20); Calcium 8.7 mg/dL (8.6-10.3); Carbon Dioxide 25 mEq/L (23-29); Chloride 102 mEq/L (98-107); Glucose 172 mg/dL (70-105); Osmolality,Calculated 283 (280-300); Potassium 3.9 mEq/L (3.5-5.1); Sodium 134 mEq/L (136-145); eGFR For Non-African Americans > 60 (> 60)
[2018-04-23] MEDS: *HR* OxyCODONE Immed Rel 15 MG TABLET PO PRN ×2 (11:42→20:02)
--- NOTE | 2018-04-23 15:36 | Oncology Inp Consult Note ---
<Jennifer Restrepo L - Last Filed: 04/23/18 16:31> Date of Encounter: 04/23/18 Time of Encounter: 14:00 Assessment and Plan (1) Deep vein thrombosis of lower extremity Status: Acute Assessment and plan: Venous doppler revealed left common femoral through tibial vein demonstrates acute thrombosis and thrombus in left greater saphenous and lesser saphenous veins. Vascular was consulted for concern for decreased pulses and cyanotic skin. Vascular has been following case. After no improvement in symptoms with heparin and conservative measures, she underwent pharmacomechanical thrombectomy of left ilio-tibial DVT with tPA and Angiojet device on 04/22/2018 POD#1 she reports subjective improvement in pain and edema She wishes to continue to work with PT to improve functional status prior to feeling comfortable with discharge home Currently on heparin gtt and planning for transition to anticoagulation for discharge home. Due to high copay for lovenox, recommendation for Xarelto 5 mg twice daily with food for 21 days followed by 20 mg once daily with food Discussed with pharmacy, copay cost of Xarelto is currently under review Recent data has shown xarelto as a good alternative form of treatment in patients with malignancy and thrombus Qualifiers: Affected thrombotic vein of extremity: iliac Chronicity: acute Laterality: left Qualified Code(s): I82.422 - Acute embolism and thrombosis of left iliac vein (2) Small cell carcinoma of right lung Problem details: limited stage small cell lung cancer Status: Chronic Assessment and plan: Following initial diagnosis in December 2015, patient has undergone multiple prior treatments as detailed in HPI Most recently on Irinotecan beginning with cycle #1 on 03/01/2018, most recently completed cycle #4 on 04/17/2018. As detailed in history of present illness CT of the chest on 04/08/2018 does note radiographic progression According to treating oncologist note following long discussion of treatment options versus less aggressive approach with hospice care, patient wishes to continue treatment. She is due for cycle #5 on 05/01/2018 along with follow up with Dr. Ramirez, we will keep this appointment as scheduled - Data of Consult Patient: known to practice within the last 3 years Consult date: 04/23/18 Requesting Physician: Jacklyn Ge MD Primary Care Provider: Alma Templeton - Consult Narrative Reason for consult: Small cell lung cancer, DVT History of present illness: Ms. Steele is a 57 year old female currently undergoing treatment for small cell lung cancer. Prior treatment history includes cisplatin and etoposide from 12/2015. 02/2016, with concurrent radiotherapy starting with cycle #2. She completed PCI in April 2016. She developed brain metastasis with loss of motor control of left arm/leg, 2 cm mass right frontal and 1 cm right frontoparietal area noted on brain MRI 12/21/2016. She underwent surgical resection of the larger frontal mass followed with FSRT to both lesions. She then completed 4 cycles of Nivolumab and Yervoy from 03/01/2017 through 05/03/2017. She developed progression with enlarging left adrenal nodule that was biopsied in May 2017, pathology revealed metastatic small cell lung cancer. She received as. He to the left adrenal mass from 08/24/2017 through 09/03/2017. In December she was noted to have radiographic progression of disease. She started he can cycle 1 on 03/01/2018, most currently completed cycle #4 on 04/17/2018. On CT chest from 04/08/2018 she was noted to have progression with increase in size of left paratracheal/supraclavicular lymph node and subcarinal/right perihilar lymphadenopathy, along with limited view but appearance of new periaortic and left perirenal soft tissue masses consistent with worsening metastatic adenopathy, along with new moderate right and left pleural effusions. At her most recent follow-up with Dr. Ramirez, this imaging concerning for disease progression was discussed, patient wishes to continue treatment and is not interested in hospice care at this time. Ms. Steele presented to [facility] on 04/18/2018 for acute LLE pain and edema. Venous doppler revealed left common femoral through tibial vein demonstrates acute thrombosis and thrombus in left greater saphenous and lesser saphenous veins. Vascular was consulted for concern for decreased pulses and cyanotic skin. Recommendation was made for conservative measures along with continued heparin gtt. On 04/21/18 she was noted to have only mild improvement in her symptoms and vascular had then recommended thrombectomy. On 04/22/2018 she underwent pharmacomechanical thrombectomy of left ilio-tibial DVT with tPA and Angiojet device. Oncology has been consulted for further recommendations in regards to ongoing anticoagulation. Past Med Surg Social Fam HX - Past Medical History Medical history: cancer, diabetes Additional medical history: non small cell with mets Psychiatric history: no psych history - Past Surgical History Surgical History: other Additional surgical history: ovarian cyst removed - Social History Smoking Status: Current every day smoker Smokeless Tobacco Status: No Alcohol use: none Drug use: none - Family History Brother Hx Family Cancer: Yes (lung cancer) Father Hx Family Cardiac Disorders: Yes Mother Hx Family Endocrine Disorder: Yes (DM) Medications and Allergies Magic Mouthwash [Magic Mouthwash BLM] 10 ml PO QID PRN #240 ml 01/07/16 [Rx] Insulin LISPRO [Humalog] 1 - 15 unit SQ HS 12/22/16 [History] LevETIRAcetam [Keppra] 1,000 mg PO BID 04/26/17 [History] RX: Magnesium Oxide [Magnesium] 1 tab PO BID #60 tablet 06/28/17 [Rx] Docusate Sodium [Colace] 1 tab PO BID #60 capsule 07/06/17 [Rx] LORazepam [Ativan] 1 tab PO AD PRN 10 Days #10 tablet 07/06/17 [Rx] Lidocaine/Prilocaine [Emla] 1 appl TP AD #30 gm 07/06/17 [Rx] Ondansetron HCl [Zofran] 4 mg PO Q4H PRN #30 tablet 02/15/18 [Rx] Prochlorperazine Maleate [Compazine] 10 mg PO Q6H PRN #30 tablet 02/15/18 [Rx] RX: Oxycodone HCl 1 tab PO Q6H PRN 30 Days #120 tablet 03/01/18 [Rx] RX: Omeprazole 20 mg PO DAILY #30 tablet.dr 03/15/18 [Rx] Furosemide [Lasix] 1 tab PO DAILY PRN #10 tablet 04/03/18 [Rx] Loperamide [Imodium] 1 tab PO Q6H PRN #30 capsule 04/17/18 [Rx] RX: FentaNYL PATCH [Duragesic] 1 patch TD Q72H 30 Days #10 patch.td72 04/17/18 [Rx] Insulin Glargine [Lantus] 0 - 27 unit SQ HS 04/18/18 [History] Levothyroxine [Synthroid] 125 mcg PO QAM 04/18/18 [History] Blood Sugar Diagnostic [Test Strips] 1 each MC AD #100 strip 11/27/18 [Rx] Enoxaparin [Lovenox] 90 mg SQ Q12HR 15 Days #30 syr 04/23/18 [Rx] Allergy/AdvReac Type Severity Reaction Status Date / Time morphine AdvReac Nausea Verified 04/18/18 04:18 Constitutional: Present: fatigue, weakness. Absent: anorexia, chills, fever(s), night sweats, weight loss Eyes: Absent: change in vision Nose, mouth and throat: Absent: headache(s), mouth lesions Cardiovascular: Absent: chest pain, palpitations Respiratory: Present: cough, dyspnea on exertion. Absent: dyspnea, hemoptysis Gastrointestinal: Absent: abdominal pain, change in bowel habits, diarrhea, hematemesis, hematochezia, melena, nausea, odynophagia, vomiting Genitourinary: Absent: dysuria Musculoskeletal: Present: as per HPI Additional comments: LLE pain/edema Integumentary: Absent: rash, wounds Neurological: Absent: focal weakness, frequent falls Hematologic/Lymphatic: Present: as per HPI Oncology - Exam - Constitutional General appearance: cooperative, no acute distress, no febrile - Head Head exam: Present: atraumatic - ENT ENT exam: Present: mucous membranes moist - Respiratory Respiratory exam: Present: decreased breath sounds. Absent: respiratory distress - Cardiovascular Cardiovascular exam: Present: RRR, +S1, +S2 - GI/Abdominal GI/Abdominal exam: Present: normal bowel sounds, soft. Absent: guarding, rebound, tenderness - Extremities Exam Additional comments: LLE non pitting edema, dorsalis pedis pulses palpable and equal bilaterally - Neurological Exam Neurological exam: Present: alert, oriented X3, no focal deficits, strengths equal and symetr throughout - Psychiatric Psychiatric exam: Present: normal affect, normal mood - Skin Skin exam: Present: dry, intact, normal color, warm Consult Discharge Plan - Plan Referrals: Shayy Seals DO [Primary Care Provider] - 08/12/18 9:15 am (6 month f/u) Trinity Benítez CNP [Advanced Practice Nurse] - 04/25/18 10:00 am Santos Dang MD [Partnered Physician] - Prescriptions: Enoxaparin [Lovenox] 90 mg SQ Q12HR 15 Days #30 syr Inpatient Charges Provider: Dr. Abraham Ma <Francesca,Del S - Last Filed: 04/23/18 21:08> Date of Encounter: 04/23/18 - Data of Consult Requesting Physician: Jacklyn Ge MD Primary Care Provider: Alma Templeton - Attending Attestation I have seen and examined Ms. Steele and agree with the assessment put in place by Ms. Restrepo. She has an extensive cute left leg DVT s/p thrombectomy/lysis with improvement in swelling and pain. She is currently on a heparin gtt. Lovenox or Xarelto are reasonable options. The recently published SELCT-D show Xarelto to be a reasonable option in patient with active malignancy. We are currently investigating cost, but I think Xarelto 15 mg bid x 21days followed by 20 mg daily indefinitely would be reasonable. Regarding her lung cancer, she has had recent progression. I will defer management to Dr. Ramirez, but think a transition to docetaxel would be a reasonable option. Encouraged ambulation. Inpatient Charges Provider: Dr. Abraham Ma Consult - Inpatient: [id number]
[2018-04-24] MEDS: Heparin 25,000 UNIT/500 ML D5W 25,000 UNIT/500 ML BAG IVC SCH (05:17)
[2018-04-24] MEDS: levETIRAcetam 250 MG TABLET PO SCH (09:23)
[2018-04-24] MEDS: *HR* OxyCODONE Immed Rel 15 MG TABLET PO PRN (09:23)
[2018-04-24] MEDS: Magnesium Oxide 400 MG TABLET PO SCH (09:23)
[2018-04-24] MEDS: Insulin LISPRO 300 UNITS/3 ML VIAL SQ SCH ×2 (09:24→15:38)
--- NOTE | 2018-04-24 09:43 | Vascular/[facility] Progress Note ---
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 (2) Deep vein thrombosis of lower extremity Current Visit: Yes Status: Acute Diffuse left lower extremity DVT. POD#2 from left leg pharmocomechanical thrombectomy. Clinically improved. ambulation. Transition to alternative anticoagulation from IV heparin is in the works at this time but has not yet been finalized. Tentative plan is for the use of Xarelto. (3) Metastatic lung cancer (metastasis from lung to other site) Current Visit: No Status: Chronic Patient has known metastatic small cell lung cancer. She is undergoing active treatment as directed from the oncology clinic. Qualifiers: Laterality: unspecified laterality Qualified Code(s): C34.90 - Malignant neoplasm of unspecified part of unspecified bronchus or lung - Subjective Interval history: Patient has no new complaints. Patient had an uneventful day yesterday and last night. Patient was up out of bed yesterday. Vital Signs, Last 4 Hours Temp Pulse Resp BP Pulse Ox 04/24/18 07:06 98.5 F 102 15 111/70 95 - Physical Examination General: Present: No Apparent Distress Neuro: Present: Alert and responsive Vascular: Present: Edema (The left lower extremity calf and thigh remained soft but still edematous.), Surgical incisions (The Silas wrap was removed from the left popliteal area. The superficial dressing was left intact.) Results 04/23/18 05:55 04/23/18 09:15 Lab Results, Last 24 hours 04/23/18 09:15 Sodium 134 L Potassium 3.9 Chloride 102 Carbon Dioxide 25 BUN 14 Creatinine 0.95 Glucose 172 H Calcium 8.7 Consult Discharge Plan - Plan Referrals: Shayy Seals DO [Primary Care Provider] - 08/12/18 9:15 am (6 month f/u) Trinity Benítez CNP [Advanced Practice Nurse] - 04/25/18 10:00 am Santos Dang MD [Partnered Physician] - Prescriptions: Enoxaparin [Lovenox] 90 mg SQ Q12HR 15 Days #30 syr Rivaroxaban [Xarelto] 15 mg PO BID 21 Days #42 tablet Rivaroxaban [Xarelto] 20 mg PO DAILY 30 Days #30 tablet
--- NOTE | 2018-04-24 12:47 | Discharge Summary ---
- NOTES TO OUTPATIENT PROVIDER Notes to Outpatient Provider: Patient discharged on Xarelto for acute DVT and possible PE. Patient due for oncology follow-up on 05/01/18. Orders not resulted at time of discharge: Pending orders 04/21/18 21:20 Red Blood Cells [BBK] Stat Type and Screen [BBK] Stat 04/25/18 13:30 Heparin anti-factor XA UFH [COAG] Timed Date of Encounter: 04/24/18 Time of Encounter: 12:36 - Discharge Diagnosis (1) Type 2 diabetes mellitus Priority: Secondary Status: Chronic Qualifiers: Diabetes mellitus long chain beamer insulin use: with fci use Diabetes mellitus complication status: with unspecified complications Qualified Code(s): E11.8 - Type 2 diabetes mellitus with unspecified complications; Z79.4 - long term care pharmacist (current) use of insulin (2) Deep vein thrombosis of lower extremity Priority: Primary Status: Acute Qualifiers: Affected thrombotic vein of extremity: iliac Chronicity: acute Laterality: left Qualified Code(s): I82.422 - Acute embolism and thrombosis of left iliac vein (3) CHASIDY (acute kidney injury) Priority: Primary Status: Resolved (4) Metastatic lung cancer (metastasis from lung to other site) Priority: Secondary Status: Chronic Qualifiers: Laterality: unspecified laterality Qualified Code(s): C34.90 - Malignant neoplasm of unspecified part of unspecified bronchus or lung (5) Hypothyroidism Priority: Secondary Status: Chronic Qualifiers: Hypothyroidism type: unspecified Qualified Code(s): E03.9 - Hypothyroidism, unspecified (6) Pulmonary emboli Priority: Secondary Status: Acute Qualifiers: Chronicity: unspecified Acute cor pulmonale presence: without acute cor pulmonale Qualified Code(s): I26.99 - Other pulmonary embolism without acute cor pulmonale Hospital course: Ms. Steele is a 57 year old female with past medical history of stage IV metastatic small cell cancer, diabetes, thyroid exam came in with bilateral lower extremity pain. Patient was on treatment for lung cancer with irinotecan cycle. Patient was found to have extensive acute left sided DVT in left greater saphenous and lesser saphenous. Patient was also found to have high probability of PE on VQ scan. Patient also had AK I on presentation which was managed with IV fluids and resolved in 3 days. Patient was started on heparin drip initially and tried conservative management however did not had significant improvement in needed surgical intervention with pharmacological thrombectomy of left iliotibial DVT with tPA and AngioJet device on 04/22/18. Patient was planned for discharge on Lovenox however due to expense xeralto was considerred. Oncology recommendation was obtained who agreed. After checking [facility] patient was discharged on xarelto. Patient would be discharged with home health. Discharge discussed with: patient, nurse, social work, client support consultant - Time Spent with Patient Total time spent providing and/or coordinating discharge services: Greater than 30 minutes (40) - Discharge Medications Prescriptions: Rivaroxaban [Xarelto] 15 mg PO BID 21 Days #42 tablet Rivaroxaban [Xarelto] 20 mg PO DAILY 30 Days #30 tablet Home Medications: Magic Mouthwash [Magic Mouthwash BLM] 10 ml PO QID PRN #240 ml 01/07/16 [Rx] Insulin LISPRO [Humalog] 1 - 15 unit SQ HS 12/22/16 [History] LevETIRAcetam [Keppra] 1,000 mg PO BID 04/26/17 [History] Magnesium Oxide [Magnesium] 1 tab PO BID #60 tablet 06/28/17 [Rx] Docusate Sodium [Colace] 1 tab PO BID #60 capsule 07/06/17 [Rx] LORazepam [Ativan] 1 tab PO AD PRN 10 Days #10 tablet 07/06/17 [Rx] Lidocaine/Prilocaine [Emla] 1 appl TP AD #30 gm 07/06/17 [Rx] Ondansetron HCl [Zofran] 4 mg PO Q4H PRN #30 tablet 02/15/18 [Rx] Prochlorperazine Maleate [Compazine] 10 mg PO Q6H PRN #30 tablet 02/15/18 [Rx] Oxycodone HCl 1 tab PO Q6H PRN 30 Days #120 tablet 03/01/18 [Rx] Omeprazole 20 mg PO DAILY #30 tablet.dr 03/15/18 [Rx] Furosemide [Lasix] 1 tab PO DAILY PRN #10 tablet 04/03/18 [Rx] FentaNYL PATCH [Duragesic] 1 patch TD Q72H 30 Days #10 patch.td72 04/17/18 [Rx] Loperamide [Imodium] 1 tab PO Q6H PRN #30 capsule 04/17/18 [Rx] Insulin Glargine [Lantus] 0 - 27 unit SQ HS 04/18/18 [History] Levothyroxine [Synthroid] 125 mcg PO QAM 04/18/18 [History] Blood Sugar Diagnostic [Test Strips] 1 each AD #100 strip 04/23/18 [Rx] Rivaroxaban [Xarelto] 15 mg PO BID 21 Days #42 tablet 04/24/18 [Rx] Rivaroxaban [Xarelto] 20 mg PO DAILY 30 Days #30 tablet 04/24/18 [Rx] Allergies/Adverse Reactions: Allergy/AdvReac Type Severity Reaction Status Date / Time morphine AdvReac Nausea Verified 04/18/18 04:18 Date of admission: 04/18/18 20:06 Primary care physician: Alma Templeton Consults: 04/23/18 08:23 Consult to Physical Therapy [CONS] Routine Comment: Evaluate, develop and implement POC Reason for Consult: improve ambulation/mobility Does patient have active BEDREST order?: No Is patient medically & hemodynamically stable?: Yes 04/23/18 10:37 Consult to Oncology Hematology [CONS] Routine Consulting Provider: Cecilio Ramirez Reason for Consult: anticoagulation for DVT Call Completed: Yes Discharging clinician: Jacklyn Ge - Constitutional Vitals: Temp Pulse Resp BP Pulse Ox 98.4 F 100 15 98/64 91 04/24/18 11:40 04/24/18 11:40 04/24/18 11:40 04/24/18 11:40 04/24/18 11:40 Exam: Gen: Alert awake oriented interactive in not acute distress. Cardiac: Normal rate and rhythm, no murmur Resp: Clear to auscultation MSK: Left leg edema improving. Improving perfusion. non-tender on palpation. pulse present. Abdomen: soft, nontender. Neuro: No focal deficit, AOx3 Skin: No ulcer/rash noted - Patient Status Disposition: Home Health Service Condition: Fair - Discharge Instructions Follow Up With: Shayy Seals DO [Primary Care Provider] - 08/12/18 9:15 am (6 month f/u) Trinity Benítez CNP [Advanced Practice Nurse] - 04/25/18 10:00 am Santos Dang MD [Partnered Physician] - - Diet and Activity Activity: as per physical therapy
--- NOTE | 2018-04-24 13:08 | Physician Discharge Referral ---
Home Health/Hosp Referral Info Transfer to: Home Health - Diagnosis (1) Type 2 diabetes mellitus Status: Chronic (2) Deep vein thrombosis of lower extremity Status: Acute (3) CHASIDY (acute kidney injury) Status: Resolved (4) Metastatic lung cancer (metastasis from lung to other site) Status: Chronic (5) Hypothyroidism Status: Chronic (6) Pulmonary emboli Status: Acute - Respiratory Orders Smoking Cessation: Smoking cessation has been advised. For more information, call the [place] Tobacco Quit Line at 6-666-AUMF-NOW. - Services Needed Following services are medically necessary services: Physical Therapy - Transfer Medications Prescriptions: Rivaroxaban [Xarelto] 15 mg PO BID 21 Days #42 tablet Rivaroxaban [Xarelto] 20 mg PO DAILY 30 Days #30 tablet Home Medications: Magic Mouthwash [Magic Mouthwash BLM] 10 ml PO QID PRN #240 ml 01/07/16 [Rx] Insulin LISPRO [Humalog] 1 - 15 unit SQ HS 12/22/16 [History] LevETIRAcetam [Keppra] 1,000 mg PO BID 04/26/17 [History] Magnesium Oxide [Magnesium] 1 tab PO BID #60 tablet 06/28/17 [Rx] Docusate Sodium [Colace] 1 tab PO BID #60 capsule 07/06/17 [Rx] LORazepam [Ativan] 1 tab PO AD PRN 10 Days #10 tablet 07/06/17 [Rx] Lidocaine/Prilocaine [Emla] 1 appl TP AD #30 gm 07/06/17 [Rx] Ondansetron HCl [Zofran] 4 mg PO Q4H PRN #30 tablet 02/15/18 [Rx] Prochlorperazine Maleate [Compazine] 10 mg PO Q6H PRN #30 tablet 02/15/18 [Rx] Oxycodone HCl 1 tab PO Q6H PRN 30 Days #120 tablet 03/01/18 [Rx] Omeprazole 20 mg PO DAILY #30 tablet.dr 03/15/18 [Rx] Furosemide [Lasix] 1 tab PO DAILY PRN #10 tablet 04/03/18 [Rx] FentaNYL PATCH [Duragesic] 1 patch TD Q72H 30 Days #10 patch.td72 04/17/18 [Rx] Loperamide [Imodium] 1 tab PO Q6H PRN #30 capsule 04/17/18 [Rx] Insulin Glargine [Lantus] 0 - 27 unit SQ HS 04/18/18 [History] Levothyroxine [Synthroid] 125 mcg PO QAM 04/18/18 [History] Blood Sugar Diagnostic [Test Strips] 1 each AD #100 strip 04/23/18 [Rx] Rivaroxaban [Xarelto] 15 mg PO BID 21 Days #42 tablet 04/24/18 [Rx] Rivaroxaban [Xarelto] 20 mg PO DAILY 30 Days #30 tablet 04/24/18 [Rx] Allergies/Adverse Reactions: Allergy/AdvReac Type Severity Reaction Status Date / Time morphine AdvReac Nausea Verified 04/18/18 04:18 Certification: Further, I certify that my clinical findings support that this patient is homebound (i.e. absences from home require considerable and taxing effort and are for medical reasons or jain services or infrequently or short duration when for other reasons) because: Homebound Reason: Patient requires assistance of a person or device to safely leave home Attestation: My signature below is to certify that this patient is under my care and that I, or nurse practitioner, or a physician's quality assistant working with me, has a [id number] encounter with this patient.
[2018-04-24 15:32] VITALS: BP 110/65
[2018-04-24] MEDS ORDERED: *HR* Rivaroxaban 15 MG TABLET PO SCH (16:00)
--- NOTE | 2018-04-24 17:25 | Oncology Inp Progress Note ---
<Jennifer Restrepo L - Last Filed: 04/24/18 17:59> Date of Encounter: 04/24/18 Time of Encounter: 12:45 (1) Deep vein thrombosis of lower extremity Status: Acute Assessment and plan: Venous doppler revealed left common femoral through tibial vein demonstrates ac rebekah thrombosis and thrombus in left greater saphenous and lesser saphenous veins. Vascular was consulted for concern for decreased pulses and cyanotic skin. Vascular has been following case. After no improvement in symptoms with heparin and conservative measures, she underwent pharmacomechanical thrombectomy of left ilio-tibial DVT with tPA and Angiojet device on 04/22/2018 Due to high copay for lovenox, recommendation for Xarelto 5 mg twice daily with food for 21 days followed by 20 mg once daily with food Verified with pharmacy today that her co-pay for Xarelto will be minimal, as such she is planning to discharge home with Xarelto Recent data has shown xarelto as a good alternative form of treatment in patients with malignancy and thrombus Postop day #2 of thrombectomy as above. She continues to report subjective improvement in symptoms Continuing to work with physical therapy,ambulated with PT today She will follow-up with Dr. Ramirez as an outpatient as scheduled She is planned for discharge soon, oncology was otherwise sign off, please feel free to contact any further questions or concerns. 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 CT of the chest on 04/08/2018 does note radiographic progression According to treating oncologist note following long discussion of treatment options versus less aggressive approach with hospice care, patient wishes to continue treatment. She is due for cycle #5 on 05/01/2018 along with follow up with Dr. Ramirez, we will keep this appointment as scheduled Oncology: Subj Interval history: He starts is resting comfortably in bed. No acute events reported overnight. She has been simulated with physical therapy today. Reports subjective improvement in pain and edema to left lower extremity. Denies fever, chills, nausea, vomiting, diarrhea, pain, shortness of breath, chest pain or any signs/ symptoms of bleeding. - Constitutional General appearance: cooperative, no acute distress, no febrile - Head Head exam: Present: atraumatic - ENT ENT exam: Present: mucous membranes moist - Respiratory Respiratory exam: Present: decreased breath sounds, CTAB. Absent: respiratory distress - Cardiovascular Cardiovascular exam: Present: RRR, +S1, +S2 - GI/Abdominal GI/Abdominal exam: Present: normal bowel sounds, soft. Absent: tenderness - Extremities Exam Additional comments: Nonpitting edema of the left lower extremity, Silas wrap intact - Neurological Exam Neurological exam: Present: alert, oriented X3, no focal deficits, strengths equal and symetr throughout - Psychiatric Psychiatric exam: Present: normal affect, normal mood - Skin Skin exam: Present: dry, intact, normal color, warm Oncology: Obj Data - Labs CBC & Chem 7: 04/23/18 05:55 04/23/18 09:15 Consult Discharge Plan - Plan Instructions: Pulmonary Embolism (DC), Deep Venous Thrombosis (DC), Anemia (GEN) Referrals: Cecilio Ramirez MD [Partnered Physician] - 05/01/18 8:15 am (Treatment is schedule for 8:30.) Trinity Benítez CNP [Advanced Practice Nurse] - 04/30/18 1:00 pm Santos Dang MD [Partnered Physician] - 05/08/18 1:30 pm Prescriptions: Rivaroxaban [Xarelto] 15 mg PO BID 21 Days #42 tablet Rivaroxaban [Xarelto] 20 mg PO DAILY 30 Days #30 tablet Inpatient Charges Provider: Dr. Abraham Ma <Del Ma - Last Filed: 04/24/18 22:05> Date of Encounter: 04/24/18 Oncology: Obj Data - Labs CBC & Chem 7: 04/23/18 05:55 04/23/18 09:15 Inpatient Charges Provider: Dr. Abraham Ma Follow up - Inpatient: [id number] - Attending Attestation I examined this patient and my medical decision-making was reviewed with the Advanced Practice Nurse. I agree with the documented findings, disposition and treatment plan as described except to the extent set forth below. She may transition to Xarelto for her PE per the SELCT-D study; would use 15 mg bid x 21 days then transition to 20 mg daily indefinitely. Copay is $30 per month which is acceptable. We will schedule f/u with Dr. Ramirez. We will otherwise sign off.
[2018-04-25] MEDS ORDERED: *HR* FentaNYL PATCH 50 MCG PATCH TD SCH (08:00)
== END 2018-04-24 16:22 | disposition home health service (06) | DRG 270 ==
LOC: 3BNU 06:14 → EMEROOARM 06:14 → 3BNU 09:36 → SUATTDRO 20:06 → 3ANU 04-19 09:12
PROVIDERS: ADMIT Hospitalist; ATTEND Internal Medicine